=== PATIENT | male | born 1935 | race Caucasian/White ===

== ENCOUNTER 2020-01-09 08:23 | Outpatient (CLI) | payer MEDICARE, SELFPAY ==
--- NOTE | ~2020-01-09 | NM_ITS ---
EXAMINATION: NM kofi stress w perfusion DATE: 01/09/2020 11:29 INDICATION: Dyspnea on exertion. TECHNIQUE: Rest images were obtained following intravenous administration of 9.41 mCi Tc99m tetrofosm in (Myoview). The patient was infused intravenously with Lexiscan (regadenoson). Then, 30.7 mCi Tc99m tetrofosmin (Myoview) was administered intravenously, and stress images were obtained. Data was lester nstructed into short axis and horizontal and vertical long axis SPECT images. Gated SPECT images were also obtained. COMPARISON: Chest 2 views 05/29/2018 FINDINGS: There is no definite reversible or fixed perfusion abnormality to suggest ischemia or infar ction. There is no segmental wall motion abnormality. Left ventricular ejection fraction measures 7 0%. IMPRESSION: 1. No definite ischemia or infarct. 2. Normal left ventricular ejection fraction measuring 70%. Reviewed, dictated and finalized at location A.
--- NOTE | 2020-01-09 08:38 | EST_ITS ---
Patient Info Name: Glen Miles Age: 84 years : 1935 Gender: Male Ht: 70 in Wt: 210 lbs BSA: 2.19 m2 Exam Date: 01/09/2020 10:27 AM Exam Location: [facility] Stress Patient Status: Outpatient Admit Date: 01/09/2020 Staff Ordering Physician: Ga Sweet DO Attending Provider: Ga Sweet DO Exercise Technologist: Champ Siddiqi RDCS, RT Exercise Physician: Ga Sweet DO Exam Type: CA stress kofi w NM Study Info A regadenoson stress test was performed. Summary 1. 1. Negative Lexiscan stress test for ischemic ST changes by ECG criteria. 2. 2. Baseline hypertension. 3. 3. Nuclear scan to follow and will be reported separately. Please correlate with it. 4. 4. Patient informed of the above results. Protocol: Lexiscan Stress ECG Details Stage: REST Duration (min): 1 min : 55 sec HR (bpm): 52 SBP (mmHg): 146 DBP (mmHg): 82 Stage: REST Duration (min): 7 min : 54 sec HR (bpm): 54 SBP (mmHg): 146 DBP (mmHg): 82 Stage: STAGE 1 Duration (min): 1 min : 0 sec HR (bpm): 62 SBP (mmHg): 170 DBP (mmHg): 69 Stage: RECOVERY Duration (min): 1 min : 0 sec HR (bpm): 61 SBP (mmHg): 170 DBP (mmHg): 69 Stage: RECOVERY Duration (min): 2 min : 0 sec HR (bpm): 61 SBP (mmHg): 170 DBP (mmHg): 69 Stage: RECOVERY Duration (min): 3 min : 0 sec HR (bpm): 58 SBP (mmHg): 170 DBP (mmHg): 69 Stage: RECOVERY Duration (min): 3 min : 29 sec HR (bpm): 60 SBP (mmHg): 154 DBP (mmHg): 69 Rest HR: 54 bpm Peak HR: 64 bpm Rest Sys BP: 146 mmHg Peak Sys BP: 170 mmHg Max Pred HR: 135 bpm % Max Pred HR: 47 % Target HR: 115 bpm Max RPP: 10,880 bpm*mmHg Termination Reason: Completed protocol Cardiac Symptoms: Shortness of breath Total Time: 1 min : 0 sec Rest Ramos BP: 82 mmHg Peak Ramos BP: 69 mmHg Total Dose: 0.4 mg Resting ECG Sinus bradycardia with first degree AV block, delayed precordial R/S transition. Stress ECG No ST changes. Arrhythmias None. Report Signatures
== END 2020-01-09 08:24 | disposition home or self-care (01) ==
PROVIDERS: PCP Family Medicine; Visit Provider Internal Medicine Cardiovascular Disease
DX: R06.09 Other forms of dyspnea (principal)
CPT/HCPCS: 78452; 93017; A9502; J2785

== ENCOUNTER 2020-04-02 13:56 | Outpatient (CLI) | payer MEDICARE, SELFPAY ==
--- NOTE | ~2020-04-02 | XR_ITS ---
EXAMINATION: XR chest 2V EXAM DATE: 04/02/2020 15:12 INDICATION: Preoperative. Medial compartment right knee surgery. TECHNIQUE: Frontal and lateral projections of the chest obtained and reviewed. Comparison is made to prior examination from 05/29/2018. FINDINGS: Probable moderate-sized gastroesophageal hiatal hernia. The lungs are clear. There are no pleural effusions. The cardiomediastinal silhouette is within normal limits. There is no pneumotho rax suspected. There are mild bony degenerative changes. IMPRESSION: 1. No acute cardiopulmonary findings. 2. Probable moderate hiatal hernia. Reviewed, dictated and finalized at location A.
[2020-04-02 15:14] LABS: Basophils Percent Auto 0.6 % (0.2-1.2); Eosinophils Absolute Auto 0.1 K/mm3 (0-0.3); Eosinophils Percent Auto 2.1 % (0-4.4); Hematocrit 42.9 % (42.0-52.0); Immature Granulocyte Absolute 0.02 K/mm3 (0.00-0.031); Immature Granulocyte Percent A 0.4 % (0-0.5); Lymphocytes Absolute Auto 1.47 K/mm3 (0.9-3.2); Lymphocytes Percent Auto 28.4 % (18.3-44.2); Mean Corpuscular HGB Conc 32.6 g/dl (32-36); Mean Corpuscular Hemoglobin 30.6 pg (26-34); Mean Corpuscular Volume 93.9 fl (80-100); Mean Platelet Volume 11.7 fl (7.4-10.4); Monocytes Absolute Auto 0.5 K/mm3 (0.1-0.6); Monocytes Percent Auto 10.3 % (2.6-8.5); Neutrophils Percent Auto 58.2 % (45.5-73.1); Platelet Count Result 146 k/mm3 (150-375); Red Blood Count 4.57 M/mm3 (4.6-6.20); Red Cell Distribution Width 14.6 % (11.5-14.5); White Blood Count 5.2 K/mm3 (4.5-10.0)
[2020-04-02 15:26] LABS: Albumin Level 4.6 g/dL (3.5-5.1); Blood Urea Nitrogen 22 mg/dL (9-20); Calcium 9.3 mg/dL (8.4-10.2); Carbon Dioxide 29 mmol/L (22-30); Chloride 105 mmol/L (98-107); Estimated Glomerular Filt Rate 48; Glucose 97 mg/dL (75-110); Sodium 139 mmol/L (137-145)
[2020-04-02 15:29] LABS: Urine Cotinine NEGATIVE
[2020-04-02 16:58] LABS: Hemoglobin A1C 5.9 % (<5.7)
== END 2020-04-02 13:57 | disposition home or self-care (01) ==
PROVIDERS: PCP Internal Medicine; Visit Provider Orthopaedic Surgery
DX: M19.90 Unspecified osteoarthritis, unspecified site (principal); Z01.818 Encounter for other preprocedural examination
CPT/HCPCS: 36415; 71046; 80048; 80307; 82040; 83036; 85025; 87070

== ENCOUNTER 2020-04-14 01:01 | Outpatient (CLI) | payer MEDICARE, SELFPAY ==
[2020-04-14 20:03] LABS: SARS-CoV-2 RNA PCR Negative
== END 2020-04-14 01:02 | disposition home or self-care (01) ==
LOC: ANHCOVIDDT 01:02
PROVIDERS: PCP Internal Medicine; Visit Provider Orthopaedic Surgery
DX: Z01.812 Encounter for preprocedural laboratory examination (principal); Z11.59 Encounter for screening for other viral diseases
CPT/HCPCS: 87635; C9803; U0003

== ENCOUNTER 2020-04-16 02:18 | Day surgery (SDC) | payer MEDICARE, SELFPAY ==
[2020-04-02 14:26] VITALS: BP 154/70; PULSE 58; RESP 20; TEMP 36.8; O2SAT 97; BMI 30.3
--- NOTE | 2020-04-14 14:28 | HP_ITS ---
DATE OF SERVICE: 04/16/2020 ADMIT DIAGNOSIS: Medial compartment arthritis, right knee. HISTORY OF PRESENT ILLNESS: The patient is an 84-year-old male patient Dr. Rowland, who presents today for an [place] partial knee replacement of his right knee versus total knee replacement. He has been having pain in this knee for years. He is very active 84-year-old with minimal medical history. He has tried treating this nonsurgically. He had a cortisone injection at the beginning of this year that had minimal relief. He does have severe medial compartment arthritis in the knee and has reached a point where he feels he would rather proceed with surgery and continue nonsurgical treatment. The pain bothers him on a daily basis and is decreasing his overall activity level because of it. He has been evaluated and Dr. Nova feels he would be a good candidate for an [place] partial knee replacement and presents today for that. PAST MEDICAL HISTORY: He did have a history of atrial fibrillation in the past, but is in normal sinus rhythm at this point. He has hypercholesterolemia. CURRENT MEDICATIONS: He takes Paxil 20 mg daily, pravastatin 80 mg daily, simvastatin 80 mg daily, and tamsulosin 0.4 mg daily. He has had arthroscopic surgery done on his right knee in 2003. He has had surgery on his nose in the past. He has a history of paroxysmal atrial fibrillation. ALLERGIES: NO KNOWN DRUG ALLERGIES. FAMILY HISTORY: Noncontributory. SOCIAL HISTORY: He is nonsmoker. PHYSICAL EXAMINATION: GENERAL: An 84-year-old male, very alert, pleasant, in no distress. VITAL SIGNS: He is 5 feet 8 inches height, 195 pounds. Other vital signs per nursing on the morning of surgery. HEENT: Grossly normal. LUNGS: Clear bilaterally. HEART: Regular rate and rhythm. EXTREMITIES: Right knee range of motion is from 7 to 135. He has mild effusion. He has tenderness along the medial joint line. Normal AP and medial lateral stability. Hip range of motion is full without discomfort. Negative Stinchfield maneuver. Normal quad strength. Sensory motor function is intact right lower extremity. 2+ dorsalis pedis and posterior tibial pulse. Skin is all normal. IMAGING DATA: X-rays demonstrate severe medial compartment arthritis in the knee. He has had an MRI scan, which generally confirms a medial compartment arthritis, but also shows the ACL to be intact and no significant arthritic changes in the lateral compartment or patellofemoral joint. Lateral meniscus appears to be intact. IMPRESSION: Mr. bell has isolated severe medial compartment arthritis that is not improved from nonsurgical treatment. He is fairly miserable on daily basis and would like to proceed with Iberia partial knee replacement. Surgical procedure as well as risks and complications were discussed. All questions were answered and we will proceed. The patient will see Dr. Rowland for presurgical clearance. He is also seeing Dr. Sweet for cardiac evaluation prior to surgery. He has had a stress test as well as an echo. His ejection fraction was 60% to 65%. Stress test was completely normal. No evidence of any ischemia. Showed sinus bradycardia with first-degree AV block. The patient will avoid any aspirin and ibuprofen products 1 week prior to surgery. His nasal swab was negative. Hemoglobin 14.0, platelets 146. His creatinine is elevated at 1.40 with a GFR of 48. We will avoid Toradol in our injection as well as any anti-inflammatories postoperatively given the elevated creatinine. D I MT: Alisia
[2020-04-16] VITALS (14 sets, daily range): BP systolic 103–149; BP diastolic 60–83; PULSE 62–79; RESP 12–20; TEMP 35.7–36.4; O2SAT 92–100
--- NOTE | ~2020-04-16 | XR_ITS ---
EXAMINATION: XR surgery orthopedic DATE: 04/16/2020 14:47 INDICATION: Right partial knee arthroplasty. TECHNIQUE: 2 fluoroscopic spot images of the right knee were obtained during procedure performed by Krista Nova. Radiologist was not present for the imaging or procedure. The amount of fluoroscopy time used during this procedure was 0.3 minutes. COMPARISON: None. FINDINGS: Osteotomy at the medial tibial plateau with placement of a middle bile while tibial tray fo r unicompartmental arthroplasty. Metallic guide pin below the tibial plateau. Expected operative gas is seen within the joint space which demonstrates significant cartilage loss along the medial side of the weightbearing medial femoral condyle. No fracture. IMPRESSION: 1. Expected appearance during right knee medial unicompartmental arthroplasty. Reviewed, dictated and finalized at location A.
--- NOTE | ~2020-04-16 | XR_ITS ---
EXAMINATION: XR knee RT 2V DATE: 04/16/2020 16:02 CDT INDICATION: Partial right knee arthroplasty TECHNIQUE: 2 views right knee FINDINGS: There is a right partial knee arthroplasty in expected position. Subcutaneous gas with flu id and air in the joint are consistent with recent surgery. No evidence of periprosthetic fracture. IMPRESSION: 1. Recent right partial knee arthroplasty. Reviewed, dictated and finalized at location A.
--- NOTE | 2020-04-16 10:15 | WPDANESEPPF ---
Anes - Initial Pre Proc Eval Procedure: Operation Date: 04/16/20 12:00 Proposed Procedures p Right Partial Knee Replacement Versus Possible Right Total Knee Arthroplasty - Piotr Nova MD Date/Time: 04/16/20 10:15 Surgeon: Piotr Nova MD Pre Op Diagnosis: OA medial compartment right knee Patient Data Age: 84 Gender: M Height: 5 ft 11 in Weight: 98.7 kg Last Vital Signs Temp 36.8 C 04/02/20 14:26 Pulse 58 L 04/02/20 14:26 Resp 20 04/02/20 14:26 BP 154/70 H 04/02/20 14:26 Pulse Ox 97 04/02/20 14:26 Allergies Allergy/AdvReac Type Severity Reaction Status Date / Time No Known Allergies Allergy Verified 03/24/20 10:18 Home Medications Medication Instructions Recorded Confirmed Type apixaban 5 mg tablet 5 mg PO BID 09/03/19 04/02/20 History ascorbic acid (vitamin C) 500 mg 500 mg PO DAILY 09/03/19 04/02/20 History chewable tablet cetirizine 10 mg capsule 10 mg PO DAILY cap 09/03/19 04/02/20 History cholecalciferol (vitamin D3) 25 1,000 unit PO WEEKLY cap 09/03/19 04/02/20 History mcg (1,000 unit) capsule coenzyme Q10 100 mg capsule 100 mg PO DAILY 09/03/19 04/02/20 History paroxetine HCl 20 mg tablet 20 mg PO DAILY 09/03/19 04/02/20 History saw palmetto fruit 450 mg capsule 450 mg PO DAILY cap 09/03/19 04/02/20 History tamsulosin 0.4 mg capsule 0.4 mg PO DAILY 09/03/19 04/02/20 History garlic 1,000 mg capsule 1,000 mg PO DAILY 03/04/20 04/02/20 History amiodarone 200 mg PO HS 04/02/20 04/02/20 History cyanocobalamin (vitamin B-12) 1,000 mcg PO DAILY 04/02/20 04/02/20 History pravastatin 80 mg PO HS 04/02/20 04/02/20 History Patient hx anesthesia problems: none Family hx anesthesia problems: none PMFSH Past Medical History Medical History Abnormal heart rhythm Afib Arthritis Hypertension Surgical History Surgical History History of right knee surgery Family History Family History Mother Patient's mother is Father Patient's father is Social History Social History Smoking status: Never smoker Second hand tobacco smoke exposure: No Alcohol intake: never Substance use: never Anes - Eval Final PreProcedure Day of Procedure 04/16/20 10:15 Patient weight: overweight Heart: regular rate and rhythm Lungs: clear to auscultation Airway: Mallampati scale class II Neurological: other (alert) Last oral intake: >/= 8 hours ASA classification: III Emergent: no Anesthetic plan: proceed Anesthesia type and monitoring: general LMA and standard monitoring Informed Consent: The patient's anesthetic plan and its attendant risks and benefits were discussed with the patient/family/POA. Questions were solicited and answers provided to the satisfaction of the patient/family/POA.
[2020-04-16] MEDS: LACTATED RINGERS 1,000 ML 30 ML IV CONT ×2 (10:30→15:55)
[2020-04-16] MEDS: ACETAMINOPHEN 500 MG TABLET 1000 MG PO (10:41)
--- NOTE | 2020-04-16 11:46 | WPDHPUPDATE1 ---
History and Physical Update Update Date/Time: 04/16/20 11:46 History and Physical has been reviewed, including an updated exam of the patient. There are NO changes in the patient's condition. Risks, benefits, and alternatives have been discussed and questions answered. Patient agrees to proceed with procedure.
[2020-04-16] MEDS: TRANEXAMIC ACID 1,000MG/ISO100 1,000 MG/100 ML BAG 200 MG IVPB (11:57)
[2020-04-16] MEDS: ceFAZolin 2 GM/D5W 50 ML 2 GM/50 ML BAG IVPB (12:00)
[2020-04-16] MEDS: GENTAMICIN BONE CEMENT REFOBACIN 1 EACH TOPICAL ×2 (13:03→13:04)
[2020-04-16] MEDS: ceFAZolin SODIUM 1 GM VIAL IV PUSH (15:02)
--- NOTE | 2020-04-16 15:48 | PM.PROC ---
Procedure Note - Detailed Date of procedure: 04/16/20 Pre-op diagnosis: OA medial compartment right knee Post-op diagnosis: same Procedure performed: [place] partial knee replacement medial compartment right knee Description of procedure: Patient was brought to the operating room and a general anesthesia was administered. He received 2 g of Ancef weight based vancomycin 1 g of tranexamic acid preoperatively. The right leg was positioned on the special thigh sabillon for the [place] knee replacement and the supporting the foot the right knee was prepped draped usual fashion. Limb was a 7 injury elevated to 3 mmHg. The 5 in longitudinal incision was made from the medial aspect of the superior pole of the patella down to just medial to the tibial tubercle. Median parapatellar arthrotomy was made in line with the incision. At at the top the arthrotomy a 2 cm split was made in the vastus medialis oblique is at the level of superior pole of patella. Small amount of the infrapatellar fat pad was excised. There was mild chondromalacia in the center of the lateral femoral condyle. ACL looked fine. The had high-grade cartilage loss and some areas of exposed bone in the medial femoral condyle and medial tibial plateau. The trochlea looked very good. There are small inferomedial osteophytes on the patella were debrided and osteophytes from around the femur in the intercondylar notch her operated. The large spoon looked appropriate. We are able to insert the 2 spoon which was a little bit snug and we linked this with the 4 mm G clamp the tibial cutting guide set at 7? posterior slope and tibial resection was made. The wafer sized to a size D which is appropriate with but about 3 mm shorter than the maximum length away for an seemed appropriate. The fluoro was brought in to make sure that the D fit a proper properly on the tibial plateau and that fit line to line posteromedially and anteromedially with no overhang mid medially. A guide edith inserted down the femoral canal and the large drill guide was linked to the intramedullary edith and position in the center of the medial femoral condyle. We had drawn a central line for placement and this fit well medial collateral. Drill holes were made. Posterior chamfer cutting guide was applied and the posterior cut made and the distal femur milled with a 0 spigot. We trialed and in flexion the 3 mm Feeler was tight without valgus stress appropriate with valgus stress and the 4 mm was too tight to insert. Wanting to use a 4 mm bearing ultimately, I reapplied the tibial cutting guide and we used the special 1 mm Britany which allowed us to cut 1 more mm of bone from the tibial plateau which was accomplished carefully. On trialing again this time the 4 mm Feeler was appropriate she of in flexion. There was not the 3 with this. At 20? of flexion the 1 mm Feeler was snug therefore we chose the 3 [address] and the place this and milled with a large male and this time on trialing we had appropriate feel with the 4 mm Feeler the Rodriguez in both in flexion-extension and we snapped in the 4 mm bearing which was noted insertion but had appropriate wiggle both at 100? 20? of flexion. The bearing was tracking appropriately 1 mm from the vertical wall in flexion and drifting to 4 mm from the vertical wall in terminal extension. The impingement guide was placed on the femur and anterior femur milled and the osteotome posteriorly removed a very small osteophytes of the large seemed to be an excellent size. The D tibia was placed on the tibia plateau and spiked in place and the slot for the keel made with the toothbrush saw. We trialed again and side no impingement with the with the bearing and full extension and full flexion. The step drill was used to make multiple drill holes in the distal femur and tibial plateau. Bone quality was satisfactory. It was not sclerotic. Petterchak impaction of the methylmethacrylate was mixed and applied to the D tibia and
[2020-04-16 16:19] LABS: Glucose Point of Care 169 (65-105)
--- NOTE | 2020-04-16 18:00 | ADMGEN ---
This patient, Glen Miles, was admitted to 2 Medical Room 255-. Patient/family oriented to hospital policies and general routines including ID bracelet, bed and alarms, visiting hours, pain management, procedures, bathroom and other care routines, personal items, smoking policy, room service/diet, and visiting hours. Valuables list has been completed. Information on how to activate the Rapid Response Team has been discussed. Patient/Family are encouraged to report perceived risks to care and to ask questions if they do not understand what they are told or what they should do.
[2020-04-16] MEDS: SODIUM CHLORIDE 0.9% IV 1,000 ML 125 ML IV CONT (18:08)
[2020-04-16] MEDS: DOCUSATE SODIUM 100 MG CAPSULE PO (18:09)
[2020-04-16] MEDS: SENNOSIDES 8.6 MG TABLET PO (18:48)
[2020-04-16] MEDS: AMIODARONE HCL 200 MG TABLET PO (20:08)
[2020-04-16] MEDS: PRAVASTATIN SODIUM 20 MG TABLET 80 MG PO (20:09)
[2020-04-17] VITALS (7 sets, daily range): BP systolic 112–152; BP diastolic 46–84; PULSE 57–78; RESP 16–18; TEMP 36.2–36.7; O2SAT 90–96
[2020-04-17] MEDS: ACETAMINOPHEN 500 MG TABLET 1000 MG PO ×3 (00:32→11:29)
[2020-04-17] MEDS: SODIUM CHLORIDE 0.9% IV 1,000 ML 125 ML IV CONT (02:08)
--- NOTE | 2020-04-17 03:24 | PM.IMCN ---
Assessment and Plan Assessment and plan (1) S/P right knee arthroscopy: Code(s): Z98.890 - Other specified postprocedural states Status: Acute Assessment and Plan: Continue Ortho recommendations. (2) Afib: Qualifiers: Atrial fibrillation type: unspecified Qualified Code(s): I48.91 - Unspecified atrial fibrillation Code(s): I48.91 - Unspecified atrial fibrillation Status: Chronic Assessment and Plan: Currently in Sinus rhythm. Continue amiodarone and resume Eliquis when possible. (3) Hypertension: Qualifiers: Hypertension type: unspecified Qualified Code(s): I10 - Essential (primary) hypertension Code(s): I10 - Essential (primary) hypertension Status: Chronic Assessment and Plan: stable. monitor blood pressure. (4) Hyperglycemia: Code(s): R73.9 - Hyperglycemia, unspecified Status: Acute Assessment and Plan: r/o diabetes mellitus. Check HgbA1c. (5) Dyslipidemia: Code(s): E78.5 - Hyperlipidemia, unspecified Status: Chronic Assessment and Plan: Continue pravastatin. Additional Plan Date of service was 04/17/2020 at 3 am. HPI Data of Consult Consult date: 04/17/20 Requesting Physician: Piotr Nova MD Primary Care Provider: Lennox Rowland, Consult Narrative Narrative: Thank you for consulting us to see this 84 year old male with known atrial fibrillation, HTN, hyperlipidemia who is s/p partial right knee arthroplasty secondary to osteoarthritis. Tonight the patient complains of ongoing knee pain but denies any fever, chills, shortness of breath, chills, abdominal pain, nausea, vomiting, diarrhea, or focal neurological symptoms. He has no other complaints at this time. Review of Systems Review of Systems: All systems reviewed & are unremarkable except as noted in HPI and below PMFSH Past Medical History Medical History Abnormal heart rhythm Afib Arthritis Hypertension Surgical History Surgical History History of right knee surgery Family History Family History Mother Patient's mother is Father Patient's father is Social History Social History Smoking status: Never smoker Second hand tobacco smoke exposure: No Alcohol intake: never Substance use: never Substance use type: does not use Gender identity (if verbalized by the patient): Male Spiritual care concerns: No Meds Home Medications and Allergies Home Medications Medication Instructions Recorded Confirmed Type apixaban 5 mg tablet 5 mg PO DAILY 09/03/19 04/16/20 History ascorbic acid (vitamin C) 500 mg 500 mg PO DAILY 09/03/19 04/16/20 History chewable tablet cetirizine 10 mg capsule 10 mg PO DAILY cap 09/03/19 04/16/20 History cholecalciferol (vitamin D3) 25 1,000 unit PO WEEKLY cap 09/03/19 04/16/20 History mcg (1,000 unit) capsule coenzyme Q10 100 mg capsule 100 mg PO DAILY 09/03/19 04/16/20 History paroxetine HCl 20 mg tablet 20 mg PO DAILY 09/03/19 04/16/20 History saw palmetto fruit 450 mg capsule 450 mg PO DAILY cap 09/03/19 04/16/20 History tamsulosin 0.4 mg capsule 0.4 mg PO DAILY 09/03/19 04/16/20 History garlic 1,000 mg capsule 1,000 mg PO DAILY 03/04/20 04/16/20 History amiodarone 200 mg PO HS 04/02/20 04/16/20 History cyanocobalamin (vitamin B-12) 1,000 mcg PO DAILY 04/02/20 04/16/20 History pravastatin 80 mg PO HS 04/02/20 04/16/20 History calcium carbonate [Antacid Ext Str 750 mg PO DAILY 04/16/20 04/16/20 History (calcium carb)] Allergies Allergy/AdvReac Type Severity Reaction Status Date / Time No Known Allergies Allergy Verified 03/24/20 10:18 Vital Signs Vital Signs - 24 hr 04/16/20 10:
[2020-04-17 06:07] LABS: Basophils Percent Auto 0.1 % (0.2-1.2); Hematocrit 38.9 % (42.0-52.0); Hemoglobin 12.8 g/dL (14.0-18.0); Immature Granulocyte Absolute 0.08 K/mm3 (0.00-0.031); Immature Granulocyte Percent A 0.7 % (0-0.5); Immature Platelet Fraction Pct 6.1 % (0.9-11.2); Lymphocytes Absolute Auto 0.47 K/mm3 (0.9-3.2); Mean Corpuscular HGB Conc 32.9 g/dl (32-36); Mean Corpuscular Hemoglobin 30.7 pg (26-34); Mean Corpuscular Volume 93.3 fl (80-100); Mean Platelet Volume 11.9 fl (7.4-10.4); Monocytes Absolute Auto 0.6 K/mm3 (0.1-0.6); Monocytes Percent Auto 5.4 % (2.6-8.5); Neutrophils Absolute Auto 10.5 K/mm3 (1.3-6.7); Neutrophils Percent Auto 89.8 % (45.5-73.1); Platelet Count Result 140 k/mm3 (150-375); Red Blood Count 4.17 M/mm3 (4.6-6.20); Red Cell Distribution Width 14.5 % (11.5-14.5); White Blood Count 11.7 K/mm3 (4.5-10.0)
[2020-04-17 06:21] LABS: Blood Urea Nitrogen 18 mg/dL (9-20); Calcium 8.7 mg/dL (8.4-10.2); Carbon Dioxide 24 mmol/L (22-30); Chloride 106 mmol/L (98-107); Estimated CRCL calculation 43 ml/min; Estimated Glomerular Filt Rate 58; Glucose 137 mg/dL (75-110); Potassium 4.6 mmol/L (3.4-5.0); Sodium 136 mmol/L (137-145)
--- NOTE | 2020-04-17 07:11 | PM.PNORT ---
Progress Note: A&P Additional Plan POD 1 alert,avss labs-pending. Wd-dry NVI, pt was having quite a bit of pain last night and did not get out of bed. PT to work with pt today, plan to send home later today if does well with PT <JAKE Fong - Last Filed: 04/17/20 07:12> Subjective Subjective Date/Time Seen: 04/17/20 07:11 <JAKE Fong - Last Filed: 04/17/20 07:12> Objective Data Vital Signs Vital Signs: Vital Signs - 24 hr 04/16/20 10:42 04/16/20 15:54 04/16/20 16:10 Temperature 35.7 C L 36.1 C L Pulse Rate 62 78 74 Respiratory Rate 16 12 Blood Pressure 136/62 124/60 122/69 Pulse Oximetry 99 98 96 04/16/20 16:25 04/16/20 16:40 04/16/20 16:55 Temperature Pulse Rate 72 74 72 Respiratory Rate 12 16 16 Blood Pressure 141/61 H 103/83 126/69 Pulse Oximetry 97 100 94 04/16/20 17:10 04/16/20 17:25 04/16/20 17:45 Temperature 36.4 C Pulse Rate 79 71 72 Respiratory Rate 18 14 16 Blood Pressure 131/68 130/61 129/65 Pulse Oximetry 92 93 95 04/16/20 18:00 04/16/20 18:30 04/16/20 19:13 Temperature 36.4 C 36.4 C 36.3 C L Pulse Rate 73 70 66 Respiratory Rate 16 16 20 Blood Pressure 122/62 124/63 149/65 H Pulse Oximetry 96 95 96 04/16/20 20:00 04/16/20 20:08 04/17/20 02:04 Temperature Pulse Rate 71 76 63 Respiratory Rate Blood Pressure Pulse Oximetry 04/17/20 04:00 04/17/20 05:38 Temperature 36.3 C L Pulse Rate 63 66 Respiratory Rate 16 Blood Pressure 152/70 H Pulse Oximetry 90 <JAKE Fong - Last Filed: 04/17/20 07:12> Intake/Output Intake/Output: Intake & Output 04/14/20 04/15/20 04/16/20 04/17/20 23:59 23:59 23:59 23:59 Intake Total 1000 1616 Output Total 100 650 Balance 900 966 <JAKE Fong - Last Filed: 04/17/20 07:12> Meds/Results Medications: Active Medications Generic Name Dose Route Start Last Admin Trade Name Freq PRN Reason Stop Dose Admin Acetaminophen 1,000 mg 04/17/20 00:00 04/17/20 05:41 Tylenol Tablet PO 1,000 mg Q6H GERMAN Administration Amiodarone HCl 200 mg 04/16/20 21:00 04/16/20 20:08 Pacerone PO 200 mg HS GERMAN Administration Apixaban 2.5 mg 04/17/20 09:00 Eliquis PO 04/28/20 21:01 Q12HR GERMAN Ascorbic Acid 500 mg 04/17/20 09:00 Vitamin C PO DAILY [facility] Cyanocobalamin 1,000 mcg 04/17/20 09:00 Vitamin B-12 Tab PO QAM GERMAN Docusate Sodium 100 mg 04/16/20 19:00 04/16/20 18:09 Colace Capsule PO 100 mg BID GERMAN Administration Sodium Chloride 1,000 mls @ 125 mls/hr 04/16/20 17:28 04/17/20 04:29 Normal Saline Iv IV CONT 125 mls/hr .Q8H GERMAN Infusion Cefazolin Sodium 1 gm in 50 mls @ 100 mls/hr 04/16/20 20:00 04/17/20 04:38 Ancef 1 Gm/D5w 50 Ml Pm IVPB 04/17/20 12:29 Infused Q8H GERMAN Infusion Loratadine 10 mg 04/17/20 09:00 Claritin PO QAM EGRMAN Naloxone HCl 0.1 mg 04/16/20 17:28 Narcan IV PUSH Q2M PRN Opiate Reversal Oxycodone HCl 2.5 mg 04/16/20 21:00 04/17/20 05:41 Roxicodone Ir Tablet PO 2.5 mg Q4HR GERMAN Administration Oxycodone HCl 5 mg 04/16/20 17:28 04/17/20 04:23 Roxicodone Ir Tablet PO 5 mg Q4H PRN Administration Pain Rated 7-10 Paroxetine HCl 20 mg 04/17/20 09:00 Paxil PO DAILY GERMAN Polyethylene Glycol 17 gm 04/17/20 09:00 Miralax PO QAM GERMAN Pravastatin Sodium 80 mg 04/16/20 21:00 04/16/20 20:09 Pravastatin Sodium PO 80 mg HS GERMAN Administration Senna 8.6 mg 04/16/20 19:00 04/16/20 18:48 Senokot Tablet PO 8.6 mg BID GERMAN Administration Tamsulosin HCl 0.4 mg 04/17/20 09:00 Flomax PO DAILY [facility] Vitamin D 1,000 unit 04/19/20 09:00 Vitamin D PO Sa@0900 [facility] <JAKE Fong - Last Filed: 04/17/20 07:12> Radiology Results: ITS Impressions Intraoperative X-Ray 04/16/20 14:49 IMPRESSION: 1. Expected appearance during right knee medial unicomp
[2020-04-17 07:14] LABS: Hemoglobin A1C 5.9 % (<5.7)
--- NOTE | 2020-04-17 07:30 | WPDANESPN ---
Anes - Prog Note Post-Op Date/Time: 04/17/20 07:30 Cardiovascular status: normal Respiratory status: normal Airway patency: baseline Mental status: baseline Post-Op hydration status: normal Vital Signs: Last Vital Signs Temp 36.3 C L 04/17/20 05:38 Pulse 66 04/17/20 05:38 Resp 16 04/17/20 05:38 BP 152/70 H 04/17/20 05:38 Pulse Ox 90 04/17/20 05:38 I/O: Intake & Output 04/16/20 04/16/20 04/17/20 15:59 23:59 07:59 Intake Total 449 381 7255 Output Total 100 650 Balance 650 250 966 Laboratory Tests 04/17/20 05:51 04/17/20 05:51 04/16/20 04/16/20 04/17/20 10:33 16:16 05:51 WBC 11.7 H RBC 4.17 L Hgb 12.8 L Hct 38.9 L MCV 93.3 MCH 30.7 MCHC 32.9 RDW 14.5 Plt Count 140 L MPV 11.9 H Immature Gran % (Auto) 0.7 H Neut % (Auto) 89.8 H Lymph % (Auto) 4.0 L Stevens % (Auto) 5.4 Eos % (Auto) 0.0 Baso % (Auto) 0.1 L Lymph # (Auto) 0.47 L Stevens # (Auto) 0.6 Eos # (Auto) 0.0 Baso # (Auto) 0.0 Abs Immat Gran (auto) 0.08 H Absolute Neuts (auto) 10.5 H Absolute Nucleated RBC 0.0 Nucleated RBC % 0.0 % Immature Plt Fraction 6.1 Sodium Potassium Chloride Carbon Dioxide BUN Creatinine Estim Creat Clear Calc Estimated GFR Glucose POC Capillary Glucose 169 H Hemoglobin A1c Calcium Blood Type A Positive Antibody Screen Negative 04/17/20 04/17/20 05:51 05:51 WBC RBC Hgb Hct MCV MCH MCHC RDW Plt Count MPV Immature Gran % (Auto) Neut % (Auto) Lymph % (Auto) Stevens % (Auto) Eos % (Auto) Baso % (Auto) Lymph # (Auto) Stevens # (Auto) Eos # (Auto) Baso # (Auto) Abs Immat Gran (auto) Absolute Neuts (auto) Absolute Nucleated RBC Nucleated RBC % % Immature Plt Fraction Sodium 136 L Potassium 4.6 Chloride 106 Carbon Dioxide 24 BUN 18 Creatinine 1.20 Estim Creat Clear Calc 43 Estimated GFR 58 L Glucose 137 H POC Capillary Glucose Hemoglobin A1c 5.9 H Calcium 8.7 Blood Type Antibody Screen Post-procedural complaints: none Patient Feedback: Patient satisfied with anesthetic care.
--- NOTE | 2020-04-17 07:35 | PM.PNORT ---
Progress Note: A&P Additional Plan As per Mahamed Tong. Cr 1.2. Will give am dose of vanco. Continue avoidance of NSAIDs. Likely home today if does well. Plan Eliquis 2.5 mg bid for 10 days then increase to 5 mg BID for Afib prrotection. Subjective Subjective Date/Time Seen: 04/17/20 07:35 Objective Data Vital Signs Vital Signs: Vital Signs - 24 hr 04/16/20 10:42 04/16/20 15:54 04/16/20 16:10 Temperature 35.7 C L 36.1 C L Pulse Rate 62 78 74 Respiratory Rate 16 12 Blood Pressure 136/62 124/60 122/69 Pulse Oximetry 99 98 96 04/16/20 16:25 04/16/20 16:40 04/16/20 16:55 Temperature Pulse Rate 72 74 72 Respiratory Rate 12 16 16 Blood Pressure 141/61 H 103/83 126/69 Pulse Oximetry 97 100 94 04/16/20 17:10 04/16/20 17:25 04/16/20 17:45 Temperature 36.4 C Pulse Rate 79 71 72 Respiratory Rate 18 14 16 Blood Pressure 131/68 130/61 129/65 Pulse Oximetry 92 93 95 04/16/20 18:00 04/16/20 18:30 04/16/20 19:13 Temperature 36.4 C 36.4 C 36.3 C L Pulse Rate 73 70 66 Respiratory Rate 16 16 20 Blood Pressure 122/62 124/63 149/65 H Pulse Oximetry 96 95 96 04/16/20 20:00 04/16/20 20:08 04/17/20 02:04 Temperature Pulse Rate 71 76 63 Respiratory Rate Blood Pressure Pulse Oximetry 04/17/20 04:00 04/17/20 05:38 Temperature 36.3 C L Pulse Rate 63 66 Respiratory Rate 16 Blood Pressure 152/70 H Pulse Oximetry 90 Intake/Output Intake/Output: Intake & Output 04/14/20 04/15/20 04/16/20 04/17/20 23:59 23:59 23:59 23:59 Intake Total 1000 1616 Output Total 100 650 Balance 900 966 Meds/Results Medications: Active Medications Generic Name Dose Route Start Last Admin Trade Name Freq PRN Reason Stop Dose Admin Acetaminophen 1,000 mg 04/17/20 00:00 07/09/20 05:41 Tylenol Tablet PO 1,000 mg Q6H GERMAN Administration Amiodarone HCl 200 mg 04/16/20 21:00 04/16/20 20:08 Pacerone PO 200 mg HS GERMAN Administration Apixaban 2.5 mg 04/17/20 09:00 Eliquis PO 04/28/20 21:01 Q12HR GERMAN Ascorbic Acid 500 mg 04/17/20 09:00 Vitamin C PO DAILY [facility] Cyanocobalamin 1,000 mcg 04/17/20 09:00 Vitamin B-12 Tab PO QAM GERMAN Docusate Sodium 100 mg 04/16/20 19:00 04/16/20 18:09 Colace Capsule PO 100 mg BID GERMAN Administration Sodium Chloride 1,000 mls @ 125 mls/hr 04/16/20 17:28 04/17/20 04:29 Normal Saline Iv IV CONT 125 mls/hr .Q8H GERMAN Infusion Cefazolin Sodium 1 gm in 50 mls @ 100 mls/hr 04/16/20 20:00 04/17/20 04:38 Ancef 1 Gm/D5w 50 Ml Pm IVPB 04/17/20 12:29 Infused Q8H GERMAN Infusion Vancomycin HCl 1,000 mg in 250 mls @ 250 mls/hr 04/17/20 07:33 Vancomycin 1,000 Mg/D5w 250 Ml IVPB 04/17/20 08:32 ONCE ONE Loratadine 10 mg 04/17/20 09:00 Claritin PO QAM GERMAN Naloxone HCl 0.1 mg 04/16/20 17:28 Narcan IV PUSH Q2M PRN Opiate Reversal Oxycodone HCl 2.5 mg 04/16/20 21:00 04/17/20 05:41 Roxicodone Ir Tablet PO 2.5 mg Q4HR GERMAN Administration Oxycodone HCl 5 mg 04/16/20 17:28 04/17/20 04:23 Roxicodone Ir Tablet PO 5 mg Q4H PRN Administration Pain Rated 7-10 Paroxetine HCl 20 mg 04/17/20 09:00 Paxil PO DAILY [facility] Polyethylene Glycol 17 gm 04/17/20 09:00 Miralax PO QAM GERMAN Pravastatin Sodium 80 mg 04/16/20 21:00 04/16/20 20:09 Pravastatin Sodium PO 80 mg HS GERMAN Administration Senna 8.6 mg 04/16/20 19:00 04/16/20 18:48 Senokot Tablet PO 8.6 mg BID [facility] Administration Tamsulosin HCl 0.4 mg 04/17/20 09:00 Flomax PO DAILY [facility] Vitamin D 1,000 unit 04/19/20 09:00 Vitamin D PO Sa@0900 [facility] Radiology Results: ITS Impressions Intraoperative X-Ray 04/16/20 14:49 IMPRESSION: 1. Expected appearance during right knee medial unicompartmental arthroplasty. Knee X-Ray 04/16/20 16:02 IMPRESSION: 1. Recent right partial knee arthroplasty. Labs Labs: La
[2020-04-17] MEDS: CYANOCOBALAMIN 1,000 MCG TABLET 1000 MCG PO (08:28)
[2020-04-17] MEDS: LORATADINE 10 MG TABLET PO (08:28)
[2020-04-17] MEDS: DOCUSATE SODIUM 100 MG CAPSULE PO (08:28)
[2020-04-17] MEDS: APIXABAN 2.5 MG TABLET PO (08:28)
[2020-04-17] MEDS: polyethylene glycoL 3350 17 GM POWD.PACK PO (08:28)
[2020-04-17] MEDS: PAROXETINE 20 MG TABLET PO (08:28)
[2020-04-17] MEDS: ASCORBIC ACID 500 MG TABLET PO (08:28)
[2020-04-17] MEDS: SENNOSIDES 8.6 MG TABLET PO (08:29)
[2020-04-17] MEDS: TAMSULOSIN HCL 0.4 MG CAPSULE PO (08:29)
--- NOTE | 2020-04-17 09:09 | DS_ITS ---
DATE OF DISCHARGE: 04/17/2020 DIAGNOSIS: Degenerative joint disease, right knee. The patient is an 84-year-old male, who underwent Bertrand partial knee replacement on his right knee by Dr. Nvoa, on April 16 underwent the procedure without any complications. Postop, he has been afebrile. Vital signs were stable. Neurovascularly intact. His wound is dry. He has a Mepilex dressing over it. He is weightbearing as tolerated. He is on Eliquis 2.5 mg for DVT prophylaxis for the first 2 weeks and then he will be resuming his normal Eliquis 5 mg dosing for his chronic atrial fibrillation after that. The patient is having quite a bit of pain postoperatively on the evening of surgery. He was not able to get up out of bed. We will have therapy work with the patient on postop day #1. He is doing well and is comfortable. We will send him home later this day once IV antibiotics are done and he is doing well with therapies. Hemoglobin on postop day #1 is 12.8, platelets are 140. His Chem panel, creatinine was still elevated at 1.2 and GFR was 58. He did not receive postop vancomycin due to his elevated creatinine. We are also not using Celebrex due to the same reason. Otherwise, the patient has been comfortable. He is alert. His outpatient physical therapy is starting next Tuesday. If the patient has any questions or concerns, he will call the office or see him at his appointed date. Krista I MT: Alisia
--- NOTE | 2020-04-17 09:46 | PM.IMPN ---
Progress Note: A&P Assessment and Plan (1) Status post right partial knee replacement: Code(s): Z96.651 - Presence of right artificial knee joint Status: Acute Assessment and Plan: -----pain is relatively well controlled this morning but earlier today it was not. He should continue with physical therapy and see how he does. Could go home today if pain is controlled and he does well with therapy. He should be placed back on his regular-dose (2.5 mg of Eliquis) anticoagulation went ortho deems it safe. (2) Afib: Qualifiers: Atrial fibrillation type: unspecified Qualified Code(s): I48.91 - Unspecified atrial fibrillation Code(s): I48.91 - Unspecified atrial fibrillation Status: Chronic Assessment and Plan: ------Currently in Sinus rhythm. Continue amiodarone and resume Eliquis when possible. (3) Hypertension: Qualifiers: Hypertension type: unspecified Qualified Code(s): I10 - Essential (primary) hypertension Code(s): I10 - Essential (primary) hypertension Status: Chronic Assessment and Plan: -----last blood pressure slightly elevated 152/70 which is likely elevated more due to pain. That he is on any hypertensive medications. Chart review shows relatively good control. Follow-up with primary care physician as regularly scheduled (4) Hyperglycemia: Code(s): R73.9 - Hyperglycemia, unspecified Status: Acute Assessment and Plan: -----A1c 5.9. Monitor outpt. (5) Dyslipidemia: Code(s): E78.5 - Hyperlipidemia, unspecified Status: Chronic Assessment and Plan: -----Continue pravastatin. Time Spent With Patient Time with patient: 25 - 35 minutes Subjective Date/time seen: 04/17/20 09:46 Interval history: Pt is a 84-year-old male here for elective right knee surgery. Patient was seen today and states his pain is a 5/10 but is much better than this morning. He has not worked with physical therapy yet. He states he is eating and drinking well with no nausea or vomiting. He has not had any chest pain, shortness of breath, fevers, chills, or abdominal pain. He lives at home with his and does not have any stairs into his house or in his house. Review of Systems Review of Systems: All systems reviewed & are unremarkable except as noted in HPI and below Exam Narrative: Exam Narrative: General: Well developed well nourished patient resting comfortably in bed in NAD HEENT: normocephalic Neck: supple Neuro: Alert and oriented x4 CV:RRR Resp:CTA Abd: Soft, non distended. No pain to palpation. Positive bowel sounds Extremities: Right knee with bandage intact without excessive erythema, swelling, or bruising. Pulses and sensation intact. Left leg within normal limits. Objective Data Vital Signs Vital Signs: Vital Signs - 24 hr 04/16/20 10:42 04/16/20 15:54 04/16/20 16:10 Temperature 96.3 F L 97.0 F L Pulse Rate 62 78 74 Respiratory Rate 16 12 Blood Pressure 136/62 124/60 122/69 Pulse Oximetry 99 98 96 04/16/20 16:25 04/16/20 16:40 04/16/20 16:55 Temperature Pulse Rate 72 74 72 Respiratory Rate 12 16 16 Blood Pressure 141/61 H 103/83 126/69 Pulse Oximetry 97 100 94 04/16/20 17:10 04/16/20 17:25 04/16/20 17:45 Temperature 97.6 F Pulse Rate 79 71 72 Respiratory Rate 18 14 16 Blood Pressure 131/68 130/61 129/65 Pulse Oximetry 92 93 95 04/16/20 18:00 04/16/20 18:30 04/16/20 19:13 Temperature 97.6 F 97.6 F 97.3 F L Pulse Rate 73 70 66 Respiratory Rate 16 16 20 Blood Pressure 122/62 124/63 149/65 H Pulse Oximetry 96 95 96 04/16/20 20:00 04/16/20 20:08 04/17/20 02:04 Temperature Pulse Rate 71 76 63 Respiratory Rate Blood Pressure Pulse Oximetry 04/17/20 04:00 04/17/20 05:38 Temperature 97.4 F L Pulse Rate 63 66 Respiratory Rate 16 Blood Pressure 152/70 H Pulse Oximetry 90 Intake/Output Intake/Output:
--- NOTE | 2020-04-17 15:10 | PC.NURSE ---
Sent Mepilex AG dressing home with patient and instructed him to change dressing in 1 week. Sent gel pads x 4 home with patient.
== END 2020-04-17 15:10 | disposition home or self-care (01) ==
LOC: ANHSURGERY 09:51 → ANH2MED 17:35
PROVIDERS: Family Medicine; PCP Internal Medicine; Visit Provider Orthopaedic Surgery
PROC: (CPT 27446; principal; 2020-04-16 12:00)
DX: M17.11 Unilateral primary osteoarthritis, right knee (principal); I10 Essential (primary) hypertension; I48.91 Unspecified atrial fibrillation; R73.9 Hyperglycemia, unspecified; E78.5 Hyperlipidemia, unspecified; Z79.01 Long term (current) use of anticoagulants
CPT/HCPCS: 27446; 36415; 71046; 73560; 80048; 80307; 82040; 83036; 85025; 85055; 86850; 86900; 86901; 87070; 87635; 97110; 97116; 97161; 97165; A9270; C1713; C1776; C9803; J0131; J0171; J0330; J0690; J1100; J2250; J2270; J2405; J2704; J2795; J3010; J3370; J7030; J7120; U0003

== ENCOUNTER 2020-06-26 07:45 | Outpatient (CLI) | payer MEDICARE, SELFPAY ==
[2020-06-26 09:12] LABS: Cholesterol 208 mg/dL (0-200); HDL Direct 54 mg/dL; Triglycerides 355 mg/dL (<150)
[2020-06-26 09:23] LABS: LDL Cholesterol Direct 37 mg/dL
== END 2020-06-26 07:46 | disposition home or self-care (01) ==
LOC: ANHLAB 07:47
PROVIDERS: PCP Internal Medicine; Visit Provider Internal Medicine Cardiovascular Disease
DX: E78.5 Hyperlipidemia, unspecified (principal)
CPT/HCPCS: 36415; 80061

== ENCOUNTER 2020-12-24 11:26 | Outpatient (CLI) | payer MEDICARE, SELFPAY ==
[2020-12-24 12:02] LABS: Alanine Aminotransferase 14 U/L (4-50); Albumin Level 3.9 g/dL (3.5-5.1); Alkaline Phosphatase 122 U/L (38-126); Anion Gap 5 mmol/L (8-16); Aspartate Amino Transferase 27 U/L (17-59); Bilirubin,Total 0.4 mg/dL (0.2-1.3); Blood Urea Nitrogen 19 mg/dL (9-20); Calcium 9.1 mg/dL (8.4-10.2); Carbon Dioxide 29 mmol/L (22-30); Chloride 108 mmol/L (98-107); Cholesterol 147 mg/dL (0-200); Estimated Glomerular Filt Rate 44; Glucose 104 mg/dL (75-110); HDL Direct 45 mg/dL; Potassium 4.5 mmol/L (3.4-5.0); Sodium 142 mmol/L (137-145); Triglycerides 189 mg/dL (<150)
[2020-12-24 12:14] LABS: LDL Cholesterol Direct < 30 mg/dL
== END 2020-12-24 11:27 | disposition home or self-care (01) ==
PROVIDERS: PCP Internal Medicine; Visit Provider Internal Medicine Cardiovascular Disease
DX: E78.5 Hyperlipidemia, unspecified (principal)
CPT/HCPCS: 36415; 80053; 80061

== ENCOUNTER 2021-01-08 09:01 | Outpatient (CLI) | payer MEDICARE, SELFPAY ==
--- NOTE | ~2021-01-08 | US_ITS ---
US abdomen complete EXAMINATION: US Abdomen Complete INDICATION: Abdominal pain PROCEDURE: Realtime High Resolution abdomen ultrasound. COMPARISON: No prior studies for comparison FINDINGS: There are areas of comet tail artifact originating from the gallbladder wall. No definite g allstones or gallbladder wall thickening. No pericholecystic fluid. Common bile duct measures 5 mm. Liver echotexture is slightly increased, consistent with fatty infiltration.. Pancreas within normal limits. Pancreatic tail is obscured by bowel gas. Spleen is unremarkeable. Renal echotexture is wi thin normal limits bilaterally without hydronephrosis, contour deforming mass or renal stone. Right k idney measures 10.8 cm. Left kidney measures 10 cm. Visualized aspects of the aorta and IVC are within normal limits. Portal vein is patent. No sonograph ic Siddiqi's sign indicated by the technologist. IMPRESSION: 1: Comet tail artifact originating from the gallbladder wall, consistent with adenomyomatosis. 2: Fatty infiltration of the liver. Reviewed, dictated and finalized at location B. IMPRESSION: 1: Comet tail artifact originating from the gallbladder wall, consistent with a denomyomatosis. 2: Fatty infiltration of the liver.
== END 2021-01-08 09:02 | disposition home or self-care (01) ==
PROVIDERS: PCP Internal Medicine; Visit Provider Internal Medicine
DX: R10.9 Unspecified abdominal pain (principal); K76.0 Fatty (change of) liver, not elsewhere classified
CPT/HCPCS: 76700

== ENCOUNTER 2021-02-19 10:19 | Outpatient (CLI) | payer MEDICARE, SELFPAY ==
[2021-02-19 11:26] LABS: Alanine Aminotransferase 16 U/L (4-50); Albumin Level 4.2 g/dL (3.5-5.1); Alkaline Phosphatase 108 U/L (38-126); Amylase 69 U/L (30-110); Aspartate Amino Transferase 33 U/L (17-59); Bilirubin,Total 0.6 mg/dL (0.2-1.3); Lipase 50 U/L (23-300)
== END 2021-02-19 10:20 | disposition home or self-care (01) ==
LOC: ANHSURGERY 10:25
PROVIDERS: PCP Internal Medicine; Visit Provider Surgery
DX: K82.4 Cholesterolosis of gallbladder (principal); Z01.818 Encounter for other preprocedural examination
CPT/HCPCS: 36415; 80076; 82150; 83690; 86850; 86900; 86901

== ENCOUNTER → 2021-02-21 01:49 | Outpatient (CLI) | payer MEDICARE, SELFPAY ==
[2021-02-21 23:32] LABS: SARS-CoV-2 RNA PCR Negative
== END ==
PROVIDERS: PCP Internal Medicine; Visit Provider Surgery
DX: Z01.812 Encounter for preprocedural laboratory examination (principal); Z20.822 Contact with and (suspected) exposure to COVID-19
CPT/HCPCS: C9803; U0003; U0005

== ENCOUNTER 2021-02-24 02:33 | Day surgery (SDC) | payer MEDICARE, SELFPAY ==
[2021-02-13 08:55] VITALS: BMI 28.8
--- NOTE | 2021-02-23 10:22 | WPDANESEPPF ---
Anes - Initial Pre Proc Eval Procedure: Operation Date: 02/24/21 11:00 Proposed Procedures p Laparoscopic Cholecystectomy - Belgica Bo MD Date/Time: 02/23/21 10:22 Surgeon: Belgica Bo MD Pre Op Diagnosis: gallbladder polyp Patient Data Age: 85 Gender: M Height: 1.8 m Weight: 93.95 kg Allergies Allergy/AdvReac Type Severity Reaction Status Date / Time No Known Allergies Allergy Verified 02/24/21 09:09 Home Medications Medication Instructions Recorded Confirmed Type ascorbic acid (vitamin C) 500 mg 500 mg PO DAILY 09/03/19 02/24/21 History chewable tablet cholecalciferol (vitamin D3) 25 2,000 unit PO DAILY cap 09/03/19 02/24/21 History mcg (1,000 unit) capsule coenzyme Q10 100 mg capsule 300 mg PO DAILY 09/03/19 02/24/21 History paroxetine HCl 20 mg tablet 20 mg PO HS 09/03/19 02/24/21 History saw palmetto 450 mg capsule 450 mg PO DAILY cap 09/03/19 02/24/21 History tamsulosin 0.4 mg capsule 0.4 mg PO HS 09/03/19 02/24/21 History garlic 1,000 mg capsule 1,000 mg PO DAILY 03/04/20 02/24/21 History cyanocobalamin (vitamin B-12) 1,000 mcg PO DAILY 04/02/20 02/24/21 History calcium carbonate [Antacid Ext Str 750 mg PO DAILY 04/16/20 02/24/21 History (calcium carb)] pravastatin 80 mg tablet See Rx Instructions .ROUTE 10/13/20 02/24/21 Rx .COMPLEX #90 tablet omega-3 fatty acids 1,000 mg 1,000 mg PO BID 12/23/20 02/24/21 History capsule amiodarone 200 mg PO HS 02/13/21 02/24/21 History apixaban [Eliquis] 5 mg PO Q12HR 02/13/21 02/24/21 History cetirizine [Zyrtec] 10 mg PO DAILY 02/13/21 02/24/21 History sennosides-docusate sodium 2 tab-cap PO PRN PRN 02/13/21 02/24/21 History Other Studies: Echo/MUGA:: Echo (EF 60-65%, mod LVH, trace TR.) - 05/23/2019 Electrophysiology:: 09/09/20 EKG: Sinus or ectopic atrial rhythm, BRWP, borderline ST-T wave in diffuse leads. 06/24/20 EKG: Sinus bradycardiat 54 bpm, first degree AV block, LAFB, consider inferior infarct, baseline artifact- I, II, III, AVR, AVL, AVF. 09/05/19 30 day event monitor: Sinus rhythm with 7 episodes of atrial fibrillation; HR range 46-120 bpm; average 59 bpm; atrial fib fastest at 94 bpm and longest lasting 4 minutes; occ PAC's and PVC's. EKG (Sinus bradycardia at 55 bpm, low voltage in limb leads, borderline ST-T wave in lateral leads.) - 05/08/2019 Stress Tests:: 09/09/20 CT head/neck: 0% ICA stenosis bilaterally. 01/09/20 Lexiscan myoview: Normal. Patient hx anesthesia problems: none Family hx anesthesia problems: none [facility] Past Medical History Medical History (Updated 02/23/21 @ 10:24 by Sandip Christine MD) Abnormal heart rhythm Afib Anxiety Arthritis BPH without obstruction/lower urinary tract symptoms CKD (chronic kidney disease) stage 3, GFR 30-59 ml/min Depression Dyslipidemia Hypertension Overweight (BMI 25.0-29.9) Surgical History Surgical History History of right knee surgery Family History Family History Mother Patient's mother is Hypertension Father Patient's father is Hypertension Social History Social History Smoking status: Never smoker Second hand tobacco smoke exposure: No Alcohol intake: never Substance use: never Substance use type: does not use Living arrangements: with family Gender identity (if verbalized by the patient): Male Spiritual care concerns: No Anes - Eval Final PreProcedure Day of Procedure 02/23/21 10:22 Patient weight: overweight Heart: regular rate and rhythm Lungs: clear to auscultation and normal air movement Airway: Mallampati scale class II Neurological: alert and oriented Last oral intake: >/= 8 hours ASA classification: III Emergent: no Anesthetic plan: proceed Anesthesia type and monitoring: general ETT Informed Consent: The
[2021-02-24] VITALS (11 sets, daily range): BP systolic 138–201; BP diastolic 61–104; PULSE 54–70; RESP 12–20; TEMP 36.4; O2SAT 92–100
[2021-02-24] MEDS: LACTATED RINGERS 1,000 ML 30 ML IV CONT ×2 (09:41→12:10)
[2021-02-24] MEDS: KETOROLAC 15 MG/ML VIAL (*BKC) IV PUSH (09:41)
[2021-02-24] MEDS: ACETAMINOPHEN 500 MG TABLET 1000 MG PO (09:42)
--- NOTE | 2021-02-24 09:47 | WPDHPUPDATE1 ---
History and Physical Update Update Date/Time: 02/24/21 09:47 History and Physical has been reviewed, including an updated exam of the patient. There are NO changes in the patient's condition. Risks, benefits, and alternatives have been discussed and questions answered. Patient agrees to proceed with procedure.
[2021-02-24] MEDS: MIDAZOLAM HCL (*CRX) 2 MG/2 ML VIAL 1 MG IV PUSH (09:52)
[2021-02-24] MEDS: ceFAZolin 2 GM/D5W 50 ML 2 GM/50 ML BAG IVPB (11:18)
[2021-02-24] MEDS: BUPIVACAINE/EPINEPHRINE 0.5% 30 ML VIAL INFILTRATE (11:21)
--- NOTE | 2021-02-24 11:57 | P.OP_ITS ---
Procedure Note - Detailed Date of procedure: 02/24/21 Pre-op diagnosis: gallbladder polyp acute cholecystitis Post-op diagnosis: same Procedure performed: laparoscopic cholecystectomy Description of procedure: The patient was taken to the operating room placed in the supine position. After adequate induction of general anesthesia, the patient was prepped and draped in normal sterile fashion. A time-out was then p erformed to verify the patient's identity as well as the procedure being performed. I then made a 5 mm incision in the infraumbilical region. Through this, a Veress needle was placed into the peritoneal cavity and CO2 gas was then insufflated. After adequate pneumoperitoneum was achieved, the Veress needle was removed and a 5 mm optiview trocar was placed through this incision under direct visualization. I then placed the laparoscope through this trocar site and under direct visualization placed a further 12 mm subxiphoid port as well as 2 additional 5 mm ports in the right upper abdomen. An inflammatory mass was noted in the RUQ. The omentum was plastered to this mass. Upon dissecting the omentum off the mass, it was noted the area was very friable. The gallbladder was then identified and was noted to be friable and distended. Upon placing a grasper at the dome of the gallbladder and using gentle traction, a cholecystostomy was made and dark bile was drained. A 2nd retractor was then placed at the infundibulum and retracted laterally, this allowed visualization of the triangle of Calot. I then was able to visualize the cystic duct in its entirety from its proximal insertion into the gallbladder, to its distal junction with the common hepatic/common bile duct junction. At this point, I carefully skeletonized the proximal cystic duct with the [place] dissector. I then clipped and transected the proximal cystic duct. Next I visualized the cystic artery. Again the artery was skeletonized, clipped, and transected. I then used the Bovie cautery to take down the peritoneal attachments of the gallbladder off the liver bed. This was difficult given the friablilty of the gallbladder. Once the gallbladder specimen was completely detached, an endo- pouch was placed through the 12 mm port site. I then placed the gallbladder specimen into the Endo pouch and removed the endo-pouch from the 12 mm port site. The specimen will now be sent to pathology for further review. I then copiously irrigated the right upper quadrant. Hemostasis was noted in the liver bed, the clips were noted to be in good position on both the cystic duct stump and the cystic artery stump. No other pathology was noted in the right upper quadrant. I then moved the laparoscope to the subxiphoid port. No iatrogenic injury or other pathology was noted in the lower abdomen. I then closed the 12 mm trocar site under direct visualization using the Mik cone and 0 Vicryl suture. At this point, the abdomen was desufflated and all ports removed. All port sites were then closed with 4.O Monocryl subcuticular sutures. Dermabond was placed on each incision. The patient tolerated the procedure well, was extubated in the operating room postoperative and will be transferred to the recovery room in stable condition. Implants: none Anesthesia: GETA Surgeon: Belgica Bo MD Estimated blood loss (mL): 10 Drains: No Packing: No Pathology: yes Complications: No immediate complications Condition: stable Disposition: PACU Findings: acute cholecystitis
[2021-02-24] MEDS: fentaNYL CITRATE INJ (*CRX) 100 MCG/2 ML VIAL 25 MCG IV PUSH ×4 (12:12→12:21)
[2021-02-24] MEDS: hydrALAZINE HCL 20 MG/ML VIAL 10 MG IV PUSH (13:00)
[2021-02-24] MEDS: HYDROmorphone HCL INJ (*CRX) 1 MG/ML SYR 0.25 MG IV PUSH ×4 (13:05→13:31)
--- NOTE | 2021-02-24 13:34 | SUR.PHASEI ---
Dr. Nanci simpson with BP 170s/70s.
--- NOTE | 2021-02-24 14:06 | SUR.PHASEII ---
1406- Call to Dr. Bo to clarify when patient can resume home Eliquis 5MG PO Q12HR. Per Dr. Bo patient can resume Eliquis tonight 02/24/2021.
[2021-02-24] MEDS: oxyCODONE HCL (*CRX) 5 MG TAB IR PO (14:15)
== END 2021-02-24 14:31 | disposition home or self-care (01) ==
PROVIDERS: PCP Internal Medicine; Visit Provider Surgery
PROC: 0FT44ZZ Resection of Gallbladder, Percutaneous Endoscopic Approach (ICD-10-PCS; CPT 47562; principal; 2021-02-24 11:00)
DX: K80.10 Calculus of gallbladder with chronic cholecystitis without obstruction (principal); I48.91 Unspecified atrial fibrillation; I12.9 Hypertensive chronic kidney disease with stage 1 through stage 4 chronic kidney disease, or unspecified chronic kidney disease; N18.30 Chronic kidney disease, stage 3 unspecified; N40.0 Benign prostatic hyperplasia without lower urinary tract symptoms; E78.5 Hyperlipidemia, unspecified; F41.8 Other specified anxiety disorders; M19.90 Unspecified osteoarthritis, unspecified site; Z79.01 Long term (current) use of anticoagulants
CPT/HCPCS: 47562; 36415; 80076; 82150; 83690; 86850; 86900; 86901; 88304; A9270; C9803; J0360; J0690; J1170; J1885; J2250; J2405; J3010; J7030; J7120; U0003; U0005

== ENCOUNTER 2021-02-25 08:30 | Observation (INO) | payer MEDICARE, SELFPAY ==
[2021-02-25] VITALS (31 sets, daily range): BP systolic 133–174; BP diastolic 57–83; PULSE 61–70; RESP 16–28; TEMP 36.6–37.2; O2SAT 87–97; BMI 28.5
--- NOTE | ~2021-02-25 | XR_ITS ---
XR chest 1V portable DATE: 02/25/2021 10:20 INDICATION: Hypoxemia TECHNIQUE: Portable AP chest on 02/25/2021 at 1022 hours COMPARISON: 09/09/2020 portable AP chest FINDINGS: Prominent bibasilar infiltrate and/atelectasis since 09/09/2020. Heart size appears borderline. Mild aortic tortuosity. No pleural effusion or pulmonary vascular congestion or pneumothorax is evident. Surgical clips, right upper quadrant, consistent with cholecystectomy. Diffuse osteopenia. Degenerative spurring and scoliosis of the thoracic spine. IMPRESSION: Prominent bibasilar infiltrate and/atelectasis Reviewed, dictated and finalized at location B.
[2021-02-25 09:03] LABS: Add Urine Microscopic? YES; Appearance Urine Cloudy (Clear); Bilirubin Urine Negative (Negative); Blood Urine Negative (Negative); Budding Yeast Urine Present /hpf; Color Urine Yellow (Yellow); Glucose Urine UA Negative (Negative); Ketones Urine Negative (Negative); Leukocyte Esterase Ur Negative LEU/UL (Negative); Mucus Urine Rare /lpf; Nitrate Urine Negative (Negative); Protein Urine 1+ mg/dL (Negative); Specific Grav Ur 1.029 (1.001-1.035)
[2021-02-25 09:46] LABS: Basophils Percent Auto 0.2 % (0.2-1.2); Eosinophils Percent Auto 0.1 % (0-4.4); Hematocrit 38.9 % (42.0-52.0); Hemoglobin 12.5 g/dL (14.0-18.0); Immature Granulocyte Absolute 0.06 K/mm3 (0.00-0.031); Immature Granulocyte Percent A 0.5 % (0-0.5); Lymphocytes Absolute Auto 0.67 K/mm3 (0.9-3.2); Lymphocytes Percent Auto 5.9 % (18.3-44.2); Mean Corpuscular HGB Conc 32.1 g/dl (32-36); Mean Corpuscular Hemoglobin 28.7 pg (26-34); Mean Corpuscular Volume 89.2 fl (80-100); Mean Platelet Volume 10.8 fl (7.4-10.4); Monocytes Absolute Auto 0.9 K/mm3 (0.1-0.6); Monocytes Percent Auto 7.9 % (2.6-8.5); Neutrophils Absolute Auto 9.7 K/mm3 (1.3-6.7); Neutrophils Percent Auto 85.4 % (45.5-73.1); Platelet Count Result 154 k/mm3 (150-375); Red Blood Count 4.36 M/mm3 (4.6-6.20); Red Cell Distribution Width 17.1 % (11.5-14.5); White Blood Count 11.3 K/mm3 (4.5-10.0)
[2021-02-25 09:48] LABS: Base Excess ABG 0.5 mEq/l (+/-2.0); Carboxyhemoglobin 0.7 % THb (0-2.0); Fractional Inspired Oxygen 21 %; HCO3 ABG 26.4 mEq/l (22.0-26.0); Methemoglobin ABG 0.2 %THb (0-1.5); Oxygen Content ABG 16.4 %vol (16.0-22.0); Oxyhemoglobin 89.7 % THb (90.0-100.0); PO2 ABG 58.3 mmHg (80.0-100.0); PO2 FiO2 Ratio Arterial Blood 2.78 %; Reduced Hemoglobin 9.4 %THb (0-5.0); pH ABG 7.359 (7.350-7.450)
[2021-02-25 09:50] LABS: Device NASAL CANNULA; Modified Allen's Test Pass; Site Drawn LEFT RADIAL
[2021-02-25] MEDS: IPRATROPIUM BR 0.02% INH SOLN 0.5 MG/2.5 ML VIAL INHALATION ×2 (10:00→20:07)
[2021-02-25] MEDS: ALBUTEROL SULFATE NEB 2.5 MG/0.5 ML INH 5 MG INHALATION ×2 (10:00→20:07)
[2021-02-25 10:06] LABS: Alanine Aminotransferase 25 U/L (4-50); Alkaline Phosphatase 90 U/L (38-126); Anion Gap 5 mmol/L (8-16); Aspartate Amino Transferase 54 U/L (17-59); Bilirubin,Total 1.4 mg/dL (0.2-1.3); Blood Urea Nitrogen 22 mg/dL (9-20); Carbon Dioxide 26 mmol/L (22-30); Chloride 104 mmol/L (98-107); Estimated CRCL calculation 42 ml/min; Estimated Glomerular Filt Rate 57; Glucose 126 mg/dL (75-110); Lipase 32 U/L (23-300); Potassium 4.8 mmol/L (3.4-5.0); Sodium 135 mmol/L (137-145)
--- NOTE | 2021-02-25 12:01 | ED.GENADULT ---
HPI - General Adult General Chief complaint: Urogenital-Male Stated complaint: Unable to urinate Time Seen by Provider: 02/25/21 09:04 Source: patient, family, RN notes reviewed and old records reviewed Mode of arrival: ambulatory Limitations: no limitations History of Present Illness HPI narrative: Patient is an 85-year-old male who presents for evaluation of inability to urinate patient had gallbladder removal by Dr. Bo was discharged yesterday and has since been unable to urinate. On arrival patient notes discomfort of the abdomen. Patient also is found to be hypoxic on arrival. Patient noted moderate aching pain throughout the night in the abdomen in the right upper quadrant. Patient notes that he began to take his Eliquis again last night as well. Patient denies injury or trauma or similar occurrence in the past. Patient notes only abdominal pain denies any chest pain. Related Data Home Medications Medication Instructions Recorded Confirmed ascorbic acid (vitamin C) 500 mg 500 mg PO DAILY 09/03/19 02/24/21 chewable tablet cholecalciferol (vitamin D3) 25 2,000 unit PO DAILY cap 09/03/19 02/24/21 mcg (1,000 unit) capsule coenzyme Q10 100 mg capsule 300 mg PO DAILY 09/03/19 02/24/21 paroxetine HCl 20 mg tablet 20 mg PO HS 09/03/19 02/24/21 saw palmetto 450 mg capsule 450 mg PO DAILY cap 09/03/19 02/24/21 tamsulosin 0.4 mg capsule 0.4 mg PO HS 09/03/19 02/24/21 garlic 1,000 mg capsule 1,000 mg PO DAILY 03/04/20 02/24/21 cyanocobalamin (vitamin B-12) 1,000 mcg PO DAILY 04/02/20 02/24/21 calcium carbonate [Antacid Ext Str 750 mg PO DAILY 04/16/20 02/24/21 (calcium carb)] omega-3 fatty acids 1,000 mg 1,000 mg PO BID 12/23/20 02/24/21 capsule Eliquis 5 mg PO Q12HR 02/13/21 02/24/21 amiodarone 200 mg PO HS 02/13/21 02/24/21 cetirizine [Zyrtec] 10 mg PO DAILY 02/13/21 02/24/21 sennosides-docusate sodium 2 tab-cap PO PRN PRN 02/13/21 02/24/21 Allergies Allergy/AdvReac Type Severity Reaction Status Date / Time No Known Allergies Allergy Verified 02/24/21 09:09 Review of Systems Review of Systems: All systems reviewed & are unremarkable except as noted in HPI and below PMFSH Past Medical History Medical History (Updated 02/25/21 @ 12:07 by Melchor Batista PA-C) Abnormal heart rhythm Afib Anxiety Arthritis BPH without obstruction/lower urinary tract symptoms CKD (chronic kidney disease) stage 3, GFR 30-59 ml/min Depression Dyslipidemia Hypertension Overweight (BMI 25.0-29.9) Surgical History Surgical History (Updated 02/25/21 @ 12:02 by Melchor Batista PA-C) History of right knee surgery Hx of cholecystectomy Family History Family History Mother Patient's mother is Hypertension Father Patient's father is Hypertension Social History Social History Smoking status: Never smoker Second hand tobacco smoke exposure: No Alcohol intake: never Substance use: never Substance use type: does not use Gender identity (if verbalized by the patient): Male Spiritual care concerns: No Exam Narrative: Exam Narrative: GENERAL: Well-appearing, well-nourished, and in no acute distress. HEAD: Normocephalic, atraumatic. EYES: PERRLA and EOMI. ENT: Nares clear, no rhinorrhea or epistaxis. Mucous membranes moist. Oropharynx without tonsillar hypertrophy exudate or other lesions. NECK: Supple. No adenopathy or masses. CHEST: Diminished on auscultation. No respiratory distress. No wheezes rales or rhonchi HEART: Regular rate and rhythm. No murmur heard. Normal peripheral pulses. ABDOMEN: Soft, mild tenderness of the abdomen, distended EXTREMITIES: Normal range of motion. No edema. SKIN: Warm, dry, no rash. NEURO: No focal deficits. Alert and oriented x3. Cranial nerves II through XII grossly intact PSYCH: Normal mood and affect
--- NOTE | 2021-02-25 12:30 | PM.IMHP ---
H&P: HPI History of Present Illness Date/Time: 02/25/21 12:30 Chief Complaint: Unable to urinate. Narrative: This is a very pleasant 85-year-old male who had a laparoscopic cholecystectomy yesterday for a gallbladder polyp per Dr. Bo who presented to the emergency department for evaluation after he has been unable to urinate since returning home after his surgery yesterday. His medical history is also significant for benign prostatic hyperplasia, paroxysmal atrial fibrillation, hypertension, dyslipidemia, and chronic kidney disease. A Flowers catheter was inserted with the return of 900 mL of urine almost immediately and he feels much better in that regard. On arrival to the emergency department his SpO2 was 87% on room air and his chest x-ray showed prominent bibasilar infiltrate and/or atelectasis. He gives no history to suggest underlying pneumonia or concerns for aspiration. He has only used his incentive spirometry 1 time since discharge from the hospital as it causes him to have quite a bit of pain at his incision sites. Because of his oxygen requirement he is being admitted for observation. No history of venous thromboembolism and denies lower extremity edema, calf pain, chest pain, pleuritic pain, palpitations, cough, and shortness of breath. No cold or flu symptoms. He denies sick contacts. Review of Systems Review of Systems: Narrative: Twelve systems were reviewed with pertinent positives and negatives as per HPI. Except as documented, all other systems were reviewed and are negative. 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 History of sinus surgery (01/09/07) Family History Family History Mother Patient's mother is Hypertension Father Patient's father is Hypertension Social History Social History (Updated 02/25/21 @ 19:23 by Suellen Freeman PA-C) Social History: The patient lives in [place] with his . 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 Lifelong nonsmoker. No alcohol or illicit substance abuse. He designates his Jina as his surrogate decision maker and he wishes to be a full code. Meds Home Medications and Allergies Home Medications Medication Instructions Recorded Confirmed Type ascorbic acid (vitamin C) 500 mg 500 mg PO DAILY 09/03/19 02/25/21 History chewable tablet cholecalciferol (vitamin D3) 25 2,000 unit PO DAILY cap 09/03/19 02/25/21 History mcg (1,000 unit) capsule coenzyme Q10 100 mg capsule 300 mg PO DAILY 09/03/19 02/25/21 History paroxetine HCl 20 mg tablet 20 mg PO HS 09/03/19 02/25/21 History saw palmetto 450 mg capsule 450 mg PO DAILY cap 09/03/19 02/25/21 History tamsulosin 0.4 mg capsule 0.4 mg PO HS 09/03/19 02/25/21 History garlic 1,000 mg capsule 1,000 mg PO DAILY 03/04/20 02/25/21 History cyanocobalamin (vitamin B-12) 1,000 mcg PO DAILY 04/02/20 02/25/21 History calcium carbonate [Antacid Ext Str 750 mg PO DAILY 04/16/20 02/25/21 History (calcium carb)] omega-3 fatty acids 1,000 mg 1,000 mg PO BID 12/23/20 02/25/21 History capsule Eliquis 5 mg PO Q12HR 02/13/21 02/25/21 History amiodarone 200 mg PO HS 02/13/21 02/25/21 History cetirizine [Zyrtec] 10 mg PO DAILY 02/13/21 02/25/21 History sennosides-docusate sodium 2 tab-cap PO PRN PRN 02/13/21 02/25/21 History hydrocodone-acetaminophen 1 tablet PO Q6H PRN #20 t
--- NOTE | 2021-02-25 12:56 | PM.CNGS ---
Assessment and Plan Assessment and plan (1) Cholecystitis: Code(s): K81.9 - Cholecystitis, unspecified Status: Acute Assessment and Plan: s/p cholecystectomy, exam benign, cont routine postop care (2) Acute urinary retention: Code(s): R33.8 - Other retention of urine Status: Acute Assessment and Plan: placement of garcia cath, would start Flomax (3) Hypoxemia: Code(s): R09.02 - Hypoxemia Status: Acute Assessment and Plan: O2 supplementation, encourage IS/OOB, follow closely History of Present Illness Consult details Consult date: 02/25/21 Reason for consult: abdominal pain Requesting physician: Ale Sage MD Narrative: Pt is a 85 y/o M s/p lap amaya 02/24 presenting to ED c/o urinary retention. Pt also c/o some moderate R sided abdominal pain. Pt found to be hypoxic in ED, c sats in the 80s on RA. Pt reports moderate relief of pain after urinary cath placed. Pt also found to have UTI on labs. Review of Systems Review of Systems: All systems reviewed & are unremarkable except as noted in HPI and below PMFSH Past Medical History Medical History Abnormal heart rhythm Afib Anxiety Arthritis BPH without obstruction/lower urinary tract symptoms CKD (chronic kidney disease) stage 3, GFR 30-59 ml/min Depression Dyslipidemia Hypertension Overweight (BMI 25.0-29.9) Surgical History Surgical History History of right knee surgery Hx of cholecystectomy Family History Family History Mother Patient's mother is Hypertension Father Patient's father is Hypertension Social History Social History Smoking status: Never smoker Second hand tobacco smoke exposure: No Alcohol intake: never Substance use: never Substance use type: does not use Gender identity (if verbalized by the patient): Male Spiritual care concerns: No Meds Home Medications and Allergies Home Medications Medication Instructions Recorded Confirmed Type ascorbic acid (vitamin C) 500 mg 500 mg PO DAILY 09/03/19 02/24/21 History chewable tablet cholecalciferol (vitamin D3) 25 2,000 unit PO DAILY cap 09/03/19 02/24/21 History mcg (1,000 unit) capsule coenzyme Q10 100 mg capsule 300 mg PO DAILY 09/03/19 02/24/21 History paroxetine HCl 20 mg tablet 20 mg PO HS 09/03/19 02/24/21 History saw palmetto 450 mg capsule 450 mg PO DAILY cap 09/03/19 02/24/21 History tamsulosin 0.4 mg capsule 0.4 mg PO HS 09/03/19 02/24/21 History garlic 1,000 mg capsule 1,000 mg PO DAILY 03/04/20 02/24/21 History cyanocobalamin (vitamin B-12) 1,000 mcg PO DAILY 04/02/20 02/24/21 History calcium carbonate [Antacid Ext Str 750 mg PO DAILY 04/16/20 02/24/21 History (calcium carb)] pravastatin 80 mg tablet See Rx Instructions .ROUTE 10/13/20 02/24/21 Rx .COMPLEX #90 tablet omega-3 fatty acids 1,000 mg 1,000 mg PO BID 12/23/20 02/24/21 History capsule Eliquis 5 mg PO Q12HR 02/13/21 02/24/21 History amiodarone 200 mg PO HS 02/13/21 02/24/21 History cetirizine [Zyrtec] 10 mg PO DAILY 02/13/21 02/24/21 History sennosides-docusate sodium 2 tab-cap PO PRN PRN 02/13/21 02/24/21 History hydrocodone-acetaminophen 1 tablet PO Q6H PRN #20 tablet 02/24/21 Rx Allergies Allergy/AdvReac Type Severity Reaction Status Date / Time No Known Allergies Allergy Verified 02/24/21 09:09 Vital Signs Vital Signs - 24 hr 02/25/21 08:34 02/25/21 08:39 02/25/21 08:44 Temperature 37.2 C 37.2 C Pulse Rate 70 70 64 Respiratory Rate 16 16 26 H Blood Pressure 174/68 H 174/68 H Pulse Oximetry 87 L 90 90 02/25/21 08:45 02/25/21 08:46 02/25/21 09:06 Temperature Pulse Rate 63 64 64 Respiratory Rate 28 H 26 H 23 H Blood Pressure 162/66 H
--- NOTE | 2021-02-25 14:28 | ADMGEN ---
This patient, Glen Miles, was admitted to 3 Med Surg Room [id number]. Patient/family oriented to hospital policies and general routines including ID bracelet, bed and alarms, visiting hours, pain management, procedures, bathroom and other care routines, personal items, smoking policy, room service/diet, and visiting hours. Information on how to activate the Rapid Response Team has been discussed. Patient/Family are encouraged to report perceived risks to care and to ask questions if they do not understand what they are told or what they should do.
[2021-02-25] MEDS: LACTATED RINGERS 1,000 ML 75 ML IV CONT (15:38)
[2021-02-25] MEDS: HYDROcodone/acetaminophen (*CRX) 5-325 MG TABLET 1 TAB PO (15:38)
[2021-02-25] MEDS: OMEGA 3 POLYUNSAT FATTY ACIDS 1 GM CAP PO (18:16)
[2021-02-25] MEDS: APIXABAN 5 MG TABLET PO (21:08)
[2021-02-25] MEDS: FAMOTIDINE 20 MG/2 ML VIAL IV PUSH (21:08)
[2021-02-25] MEDS: PRAVASTATIN SODIUM 20 MG TABLET 80 MG PO (21:08)
[2021-02-25] MEDS: TAMSULOSIN HCL 0.4 MG CAPSULE PO (21:09)
[2021-02-25] MEDS: AMIODARONE HCL 200 MG TABLET PO (21:09)
[2021-02-25] MEDS: PARoxetine 20 MG TABLET PO (21:10)
[2021-02-26] VITALS (8 sets, daily range): BP systolic 119–137; BP diastolic 50–66; PULSE 68–93; RESP 18–20; TEMP 36.5–37.1; O2SAT 91–95
[2021-02-26] MEDS: ALBUTEROL SULFATE NEB 2.5 MG/0.5 ML INH 5 MG INHALATION ×2 (02:07→08:19)
[2021-02-26] MEDS: IPRATROPIUM BR 0.02% INH SOLN 0.5 MG/2.5 ML VIAL INHALATION ×2 (02:07→08:19)
[2021-02-26] MEDS: LACTATED RINGERS 1,000 ML 75 ML IV CONT (04:19)
[2021-02-26 06:28] LABS: Basophils Percent Auto 0.4 % (0.2-1.2); Eosinophils Absolute Auto 0.2 K/mm3 (0-0.3); Eosinophils Percent Auto 1.6 % (0-4.4); Hemoglobin 11.1 g/dL (14.0-18.0); Immature Granulocyte Absolute 0.02 K/mm3 (0.00-0.031); Immature Granulocyte Percent A 0.2 % (0-0.5); Lymphocytes Absolute Auto 0.91 K/mm3 (0.9-3.2); Lymphocytes Percent Auto 8.8 % (18.3-44.2); Mean Corpuscular HGB Conc 31.7 g/dl (32-36); Mean Corpuscular Hemoglobin 28.1 pg (26-34); Mean Corpuscular Volume 88.6 fl (80-100); Mean Platelet Volume 11.5 fl (7.4-10.4); Monocytes Absolute Auto 0.7 K/mm3 (0.1-0.6); Monocytes Percent Auto 7.1 % (2.6-8.5); Neutrophils Absolute Auto 8.5 K/mm3 (1.3-6.7); Neutrophils Percent Auto 81.9 % (45.5-73.1); Platelet Count Result 145 k/mm3 (150-375); Red Blood Count 3.95 M/mm3 (4.6-6.20); Red Cell Distribution Width 17.2 % (11.5-14.5); White Blood Count 10.3 K/mm3 (4.5-10.0)
[2021-02-26 06:52] LABS: Alanine Aminotransferase 17 U/L (4-50); Albumin Level 3.3 g/dL (3.5-5.1); Alkaline Phosphatase 83 U/L (38-126); Anion Gap 1 mmol/L (8-16); Aspartate Amino Transferase 32 U/L (17-59); Blood Urea Nitrogen 15 mg/dL (9-20); Calcium 8.9 mg/dL (8.4-10.2); Carbon Dioxide 31 mmol/L (22-30); Chloride 105 mmol/L (98-107); Estimated CRCL calculation 42 ml/min; Estimated Glomerular Filt Rate 57; Glucose 110 mg/dL (75-110); Potassium 4.5 mmol/L (3.4-5.0); Sodium 137 mmol/L (137-145)
[2021-02-26] MEDS: CHOLECALCIFEROL 1,000 UNITS TABLET 2000 UNITS PO (08:55)
[2021-02-26] MEDS: OMEGA 3 POLYUNSAT FATTY ACIDS 1 GM CAP PO (08:55)
[2021-02-26] MEDS: ASCORBIC ACID 500 MG TABLET PO (08:56)
[2021-02-26] MEDS: CYANOCOBALAMIN 1,000 MCG TABLET 1000 MCG PO (08:56)
[2021-02-26] MEDS: CALCIUM CARBONATE (TUMS) 500 MG (200 MG ELEMENTAL) PO (08:56)
[2021-02-26] MEDS: APIXABAN 5 MG TABLET PO (08:56)
[2021-02-26] MEDS: LORATADINE 10 MG TABLET PO (08:56)
[2021-02-26] MEDS: FAMOTIDINE 20 MG/2 ML VIAL IV PUSH (08:56)
--- NOTE | 2021-02-26 12:06 | PM.PNGS ---
Progress Note: A&P Assessment and Plan (1) Cholecystitis: Code(s): K81.9 - Cholecystitis, unspecified Status: Acute Assessment and Plan: Tolerating a diet. Pain well controlled. Continue PRN oral analgesics. Continue routine post-op care. (2) Acute urinary retention: Code(s): R33.8 - Other retention of urine Status: Acute Assessment and Plan: Continue Flowers catheter and Flomax. Management per primary service. (3) Hypoxemia: Code(s): R09.02 - Hypoxemia Status: Acute Assessment and Plan: O2 supplementation. Encouraged nurse to try weaning O2 off. Encourage IS/OOB. Management per Hospitalist. Additional Plan Discussed plan of care with Dr. Bo. If hypoxia resolves and he is medically stable, okay from a surgical standpoint to discharge patient and keep scheduled f/u with Dr. Bo as an outpatient. Subjective Subjective Date/Time Seen: 02/26/21 12:06 Post Op day: 2 (lap amaya) Patient reports: no new complaints, feels better and tolerating a regular diet Interval history: Patient feeling much better today. Flowers in place. Reports some soreness from abdominal incisions but well controlled. No other complaints at this time. Review of Systems Review of Systems: All systems reviewed & are unremarkable except as noted in HPI and below Exam Const: General: comfortable, no acute distress, alert and awake Orientation/consciousness: patient oriented x3 GI: Inspection: non-distended and incision (Abdominal incisions clean and dry, glue intact.) GI Palp: Yes Soft to palpation and Yes Tenderness to palpation present (GI) (incisional) Auscultation: normal bowel sounds Urinary Catheter: Urinary Catheter: patent and draining and urine clear Skin: General skin exam: normal color Psych: Mental Status: mental status grossly normal Judgement: Good judgement present (Psych) Objective Data Vital Signs Vital Signs: Vital Signs - 24 hr 02/25/21 12:15 02/25/21 12:30 02/25/21 12:45 Temperature Pulse Rate 62 Respiratory Rate 16 20 19 Blood Pressure Pulse Oximetry 92 96 02/25/21 12:53 02/25/21 13:00 02/25/21 13:01 Temperature Pulse Rate Respiratory Rate 20 17 18 Blood Pressure 161/83 H 174/78 H Pulse Oximetry 90 02/25/21 13:15 02/25/21 13:16 02/25/21 14:00 Temperature 97.9 F Pulse Rate 65 Respiratory Rate 18 21 H 20 Blood Pressure 161/75 H 160/61 H Pulse Oximetry 97 02/25/21 20:10 02/25/21 20:22 02/25/21 22:00 Temperature 98.8 F Pulse Rate 64 63 66 Respiratory Rate 18 18 18 Blood Pressure 133/57 L Pulse Oximetry 92 95 02/26/21 02:05 02/26/21 02:18 02/26/21 05:25 Temperature 98.8 F Pulse Rate 68 70 71 Respiratory Rate 18 18 18 Blood Pressure 137/66 Pulse Oximetry 92 02/26/21 08:00 02/26/21 08:20 02/26/21 08:30 Temperature 97.9 F Pulse Rate 72 69 72 Respiratory Rate 20 20 20 Blood Pressure 132/53 L Pulse Oximetry 92 92 Intake/Output Intake/Output: Intake & Output 02/23/21 02/24/21 02/25/21 02/26/21 23:59 23:59 23:59 23:59 Intake Total 340 1250 Output Total 250 1250 Balance 90 0 Meds/Results Medications: Active Medications Generic Name Dose Route Start Last Admin Trade Name Freq PRN Reason Stop Dose Admin Hydrocodone Bitart/Acetaminophen 1 tab 02/25/21 15:13 02/25/21 15:38 Hydrocodone/Acetaminophen (*Crx) 5-325 Mg Tablet PO 1 tab Q6H PRN Administration pain 4-6 Albuterol 5 mg 02/25/21 14:00 02/26/21 08:19 Albuterol Sulfate Neb 2.5 Mg/0.5 Ml Inh INHALATION 5 mg Q6HRT GERMAN Administration Amiodarone HCl 200 mg 02/25/21 21:00 02/25/21 21:09 Amiodarone Hcl 200 Mg Tablet PO 200 mg HS GERMAN Administration Apixaban 5 mg 02/25/21 21:00 02/26/21 08:56 Apixaban 5 Mg Tablet PO 5 mg Q12HR GERMAN Administration Ascorbic Acid 500 mg 02/26/21 09:00 02/26/21 08:56 Ascorbic Acid 500 Mg Tablet PO 500 mg DAILY GERMAN Administration
--- NOTE | 2021-02-26 14:20 | PM.DS ---
DS: Admitting Diagnosis Admitting Diagnosis Admitting Diagnosis: (1) Urinary retention: Code(s): R33.9 - Retention of urine, unspecified Status: Acute (2) History of laparoscopic cholecystectomy: Onset Date: 02/24/21 Code(s): Z90.49 - Acquired absence of other specified parts of digestive tract Status: Acute (3) Hypoxia: Code(s): R09.02 - Hypoxemia Status: Acute (4) Pulmonary infiltrate on chest x-ray: Code(s): R91.8 - Other nonspecific abnormal finding of lung field Status: Acute (5) Paroxysmal atrial fibrillation: Code(s): I48.0 - Paroxysmal atrial fibrillation Status: Acute (6) Current use of shelter anticoagulation: Code(s): Z79.01 - direct mail manager (current) use of anticoagulants Status: Acute (7) Benign prostatic hyperplasia: Code(s): N40.0 - Benign prostatic hyperplasia without lower urinary tract symptoms Status: Acute DS: Discharge Diagnosis Discharge Diagnosis (1) Current use of wash driller anticoagulation: Code(s): Z79.01 - FDC (current) use of anticoagulants Status: Acute (2) History of laparoscopic cholecystectomy: Onset Date: 02/24/21 Code(s): Z90.49 - Acquired absence of other specified parts of digestive tract Status: Acute (3) Gallbladder polyp: Code(s): K82.4 - Cholesterolosis of gallbladder Status: Acute (4) Gastroesophageal reflux disease: Code(s): K21.9 - Gastro-esophageal reflux disease without esophagitis Status: Acute (5) Benign prostatic hyperplasia: Code(s): N40.0 - Benign prostatic hyperplasia without lower urinary tract symptoms Status: Acute (6) Paroxysmal atrial fibrillation: Code(s): I48.0 - Paroxysmal atrial fibrillation Status: Acute (7) Peripheral neuropathy: Code(s): G62.9 - Polyneuropathy, unspecified Status: Acute (8) Cholecystitis: Code(s): K81.9 - Cholecystitis, unspecified Status: Acute (9) Acute urinary retention: Code(s): R33.8 - Other retention of urine Status: Acute (10) CKD (chronic kidney disease) stage 3, GFR 30-59 ml/min: Code(s): N18.30 - Chronic kidney disease, stage 3 unspecified Status: Acute DS: Summary Hospital Course Reason for hospitalization: laparoscopic cholecystectomy w post op urinary retention and hypoxia Hospital Course: The patient is status post laparoscopic cholecystectomy yesterday for gallbladder polyp and he has been unable to urinate since surgery. Flowers catheter drained 1 liter of urine thus far and is feeling better in that regard. He was mildly hypoxic on arrival to the emergency department chest x-ray does show bilateral pulmonary infiltrates felt to be atelectasis as the patient is avoiding taking deep breaths as it causes his incision sites to hurt. Pneumonia is less likely at this time. Incentive spirometry encouraged. Wean oxygen as tolerated. Continue tamsulosin for BPH. Currently sounds to be in a sinus rhythm in amiodarone will be continued. I believe his Eliquis was resumed today. The rest of his home medications will be reviewed and resumed as appropriate. Vital signs were reviewed and they are stable. Pt monitored overnight and weaned from oxygen. He was asymptomatic at time of discharge but did have to go home w Flowers catheter for urinary retention. He is part of a HMO plan and, therefore advised to follow up w his PCP for referral to urology for ongoing care. discharged home in stable condition on RA, afebrile, advised to use incentive spirometry, encouraged to mobilize and ambulate, and to follow up w PCP. charles noted in urine, asymptomatic and on amiodarone. antifungal therapy deferred to PCP if considered appropriate at time of followup. Time Spent with Patient Time attestation: Total time spent providing and/or coordinating discharge services: 35min DS: Data Data Completed and Pending Labs on day
--- NOTE | 2021-02-27 08:01 | PCRCNOTE ---
Pt had a Six minute walk test ordered, which I assume was intented to assess need for home oxygen. Unfortunately pt was discharged before it was completed. Pt appeared to be weaned to room air and discharged without any O2 needs.
== END 2021-02-26 16:50 | disposition home or self-care (01) ==
LOC: ANHED 12:07 → ANH3MEDSUR 02-26 14:20
PROVIDERS: Emergency Medicine Emergency Medical Services; Admitting Provider Family Medicine; Emergency Provider Emergency Medicine; PCP Internal Medicine; Visit Provider Hospitalist
DX: R33.9 Retention of urine, unspecified (principal); R09.02 Hypoxemia; Z98.890 Other specified postprocedural states; Z90.49 Acquired absence of other specified parts of digestive tract; R91.8 Other nonspecific abnormal finding of lung field; I48.0 Paroxysmal atrial fibrillation; I12.9 Hypertensive chronic kidney disease with stage 1 through stage 4 chronic kidney disease, or unspecified chronic kidney disease; N18.30 Chronic kidney disease, stage 3 unspecified; E78.5 Hyperlipidemia, unspecified; N40.0 Benign prostatic hyperplasia without lower urinary tract symptoms; F41.8 Other specified anxiety disorders; K21.9 Gastro-esophageal reflux disease without esophagitis; Z79.01 Long term (current) use of anticoagulants; Z86.16 Personal history of COVID-19
CPT/HCPCS: 36415; 36600; 51702; 71045; 80053; 81001; 82375; 82805; 83050; 83690; 85025; 87086; 94640; 96361; 96365; 96375; 96376; 97161; 99285; A9270; G0378; J0696; J7120

== ENCOUNTER 2021-02-27 15:45 | Emergency (ER) | payer MEDICARE, SELFPAY ==
[2021-02-27 15:52] VITALS: BP 126/57; PULSE 71; RESP 18; TEMP 36.6; O2SAT 92
[2021-02-27 16:01] VITALS: BP 150/65; PULSE 68; RESP 26; O2SAT 92
[2021-02-27 16:17] VITALS: BP 132/53; RESP 27; O2SAT 90
--- NOTE | 2021-02-27 16:18 | ED.GENADULT ---
HPI - General Adult General Chief complaint: Urogenital-Male Stated complaint: urinary retention Time Seen by Provider: 02/27/21 15:51 Source: patient Limitations: no limitations History of Present Illness HPI narrative: 85-year-old male Patient had his gallbladder out 4 days ago here 1 day after discharge he had to return because of urinary retention and was discharged with a Flowers yesterday Today he returns complaining of discomfort due to the Flowers catheter and a feeling like he might be constipated Related Data Home Medications Medication Instructions Recorded Confirmed ascorbic acid (vitamin C) 500 mg 500 mg PO DAILY 09/03/19 02/25/21 chewable tablet cholecalciferol (vitamin D3) 25 2,000 unit PO DAILY cap 09/03/19 02/25/21 mcg (1,000 unit) capsule coenzyme Q10 100 mg capsule 300 mg PO DAILY 09/03/19 02/25/21 paroxetine HCl 20 mg tablet 20 mg PO HS 09/03/19 02/25/21 saw palmetto 450 mg capsule 450 mg PO DAILY cap 09/03/19 02/25/21 tamsulosin 0.4 mg capsule 0.4 mg PO HS 09/03/19 02/25/21 garlic 1,000 mg capsule 1,000 mg PO DAILY 03/04/20 02/25/21 cyanocobalamin (vitamin B-12) 1,000 mcg PO DAILY 04/02/20 02/25/21 calcium carbonate [Antacid Ext Str 750 mg PO DAILY 04/16/20 02/25/21 (calcium carb)] omega-3 fatty acids 1,000 mg 1,000 mg PO BID 12/23/20 02/25/21 capsule Eliquis 5 mg PO Q12HR 02/13/21 02/25/21 amiodarone 200 mg PO HS 02/13/21 02/25/21 cetirizine [Zyrtec] 10 mg PO DAILY 02/13/21 02/25/21 sennosides-docusate sodium 2 tab-cap PO PRN PRN 02/13/21 02/25/21 pravastatin 80 mg PO HS 02/25/21 02/25/21 Allergies Allergy/AdvReac Type Severity Reaction Status Date / Time No Known Allergies Allergy Verified 02/27/21 18:41 Review of Systems Review of Systems: All systems reviewed & are unremarkable except as noted in HPI and below Constitutional: Constitutional: Reports no additional constitutional complaints, Denies chills, Reports fatigue, Denies fever(s), Denies headache(s) and Reports weakness Eyes: Eyes: Reports no additional eye complaints and Denies change in vision ENT: Denies headache(s) and Denies sore throat Cardiovascular: Cardiovascular: Denies chest pain and Denies dyspnea Respiratory: Respiratory: Denies cough and Denies dyspnea Gastrointestinal: Gastrointestinal: Reports abdominal pain, Reports bloating, Reports constipation, Denies diarrhea and Denies vomiting Genitourinary: Genitourinary: Reports oliguria, Reports dysuria and Denies urinary frequency Musculoskeletal: Musculoskeletal: Denies deformity and Denies numbness Integumentary/Breasts: Skin/Breast: Denies wounds [facility] Past Medical History Medical History (Updated 02/27/21 @ 19:03 by Otto Alfaro MD) Anxiety Arthritis Benign prostatic hyperplasia Chronic kidney disease, stage 3 COVID-19 (09/2020) 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 History of sinus surgery (01/09/07) Family History Family History Mother Patient's mother is Hypertension Father Patient's father is Hypertension Social History Social History (Updated 02/25/21 @ 19:23 by Suellen Freeman PA-C) Social History: The patient lives in [place] with his . Retired from a [employer] company. Lifelong nonsmoker. No alcohol or illicit substance abuse. He designates his Jina as his surrogate decision maker and he wishes to be a full code. Gender identity (if verbalized by the patient): Male Exam Const: General: cooperative, no acute distress and alert HENMT: Head: no
[2021-02-27 16:32] VITALS: BP 148/66; PULSE 69; RESP 22; O2SAT 91
[2021-02-27 16:32] LABS: Basophils Percent Auto 0.1 % (0.2-1.2); Eosinophils Absolute Auto 0.1 K/mm3 (0-0.3); Eosinophils Percent Auto 1.2 % (0-4.4); Hematocrit 33.6 % (42.0-52.0); Hemoglobin 10.9 g/dL (14.0-18.0); Immature Granulocyte Absolute 0.04 K/mm3 (0.00-0.031); Immature Granulocyte Percent A 0.5 % (0-0.5); Lymphocytes Absolute Auto 0.74 K/mm3 (0.9-3.2); Mean Corpuscular HGB Conc 32.4 g/dl (32-36); Mean Corpuscular Hemoglobin 29.2 pg (26-34); Mean Corpuscular Volume 90.1 fl (80-100); Mean Platelet Volume 10.7 fl (7.4-10.4); Monocytes Absolute Auto 0.8 K/mm3 (0.1-0.6); Monocytes Percent Auto 9.4 % (2.6-8.5); Neutrophils Absolute Auto 6.6 K/mm3 (1.3-6.7); Neutrophils Percent Auto 79.8 % (45.5-73.1); Platelet Count Result 146 k/mm3 (150-375); Red Blood Count 3.73 M/mm3 (4.6-6.20); White Blood Count 8.2 K/mm3 (4.5-10.0)
[2021-02-27] MEDS: MAGNESIUM CITRATE 300 ML BTL PO (16:33)
[2021-02-27] MEDS: polyethylene glycoL 3350 17 GM POWD.PACK PO (16:33)
[2021-02-27 16:43] LABS: Alanine Aminotransferase 22 U/L (4-50); Albumin Level 3.4 g/dL (3.5-5.1); Alkaline Phosphatase 85 U/L (38-126); Anion Gap 5 mmol/L (8-16); Aspartate Amino Transferase 45 U/L (17-59); Blood Urea Nitrogen 19 mg/dL (9-20); Carbon Dioxide 27 mmol/L (22-30); Chloride 104 mmol/L (98-107); Estimated CRCL calculation 34 ml/min; Estimated Glomerular Filt Rate 44; Glucose 116 mg/dL (75-110); Lipase 62 U/L (23-300); Potassium 4.2 mmol/L (3.4-5.0); Sodium 136 mmol/L (137-145)
[2021-02-27 16:46] VITALS: BP 166/89; PULSE 73; RESP 28; O2SAT 94
[2021-02-27] MEDS: ONDANSETRON INJ 4 MG/2 ML VIAL IV PUSH (16:57)
[2021-02-27] MEDS: LACTATED RINGERS 1,000 ML 150 ML IV CONT (16:58)
[2021-02-27 17:46] VITALS: BP 128/88; PULSE 69; RESP 23; O2SAT 88
--- NOTE | 2021-03-13 03:06 | PC.NURSE ---
LATE ENTRY This note is being entered to document information to the patient's record. The following information was omitted on [], 02/28/21 01:45 david alonso [].
== END 2021-02-27 20:15 | disposition home or self-care (01) ==
PROVIDERS: Emergency Provider Emergency Medicine; PCP Internal Medicine
DX: Z46.6 Encounter for fitting and adjustment of urinary device (principal); K59.00 Constipation, unspecified; I48.0 Paroxysmal atrial fibrillation; N40.0 Benign prostatic hyperplasia without lower urinary tract symptoms; I12.9 Hypertensive chronic kidney disease with stage 1 through stage 4 chronic kidney disease, or unspecified chronic kidney disease; N18.30 Chronic kidney disease, stage 3 unspecified; Z86.16 Personal history of COVID-19; E78.5 Hyperlipidemia, unspecified; G62.9 Polyneuropathy, unspecified; M19.90 Unspecified osteoarthritis, unspecified site; Z79.01 Long term (current) use of anticoagulants
CPT/HCPCS: 36415; 51702; 80053; 83690; 85025; 96374; 99284; A9270; J2405; J7120

== ENCOUNTER → 2021-10-16 11:58 | Outpatient (CLI) | payer MEDICARE, SELFPAY ==
--- NOTE | ~2021-10-16 | MR_ITS ---
EXAMINATION: MR lumbar spine wo con DATE: 10/16/2021 12:26 INDICATION: Lumbar radiculopathy TECHNIQUE: Magnetic resonance imaging (MRI) of the lumbar spine was performed without intravenous con trast. Sequences included sagittal T2-weighted FSE, sagittal T2-weighted FS FSE, sagittal T1-weighted FSE, and axial T2-weighted FSE. COMPARISON: None FINDINGS: 8 mm lumbar dextrocurvature between L2 and L5. Chronic L4 compression fracture with mild left-sided v ertebral body height loss. Additional mild central vertebral body height loss with likely chronic end plate compression fractures inferiorly at L3 and L5 and at the superior endplate of S1. Small Schmorl 's nodes at the inferior endplate of T11 and the superior and inferior endplates of L1. Remaining kinjal tebral body heights are normal. Mild to moderate left-sided predominant disc height loss at L4-L5 wit h mild thoracic degenerative endplate changes at the left side of both endplates. Marrow signal is ot herwise normal. Additional moderate disc height loss at L5-S1 disc desiccation and mild disc height l oss at the remaining levels from T11-T12 through L3-L4. The conus medullaris terminates at L1. There is normal signal in the caudal spinal cord. Paravertebral soft tissues are unremarkable. The followin g disc levels are specifically discussed: T12-L1: The disc does not extend beyond the endplate margin. There is mild bilateral facet joint oste oarthritis. There is no neural foraminal stenosis. There is no central canal stenosis. L1-L2: Disc is mildly bulging. There is hypertrophy of the ligamentum flavum. There is mild bilatera l facet joint osteoarthritis. There is mild bilateral neural foraminal stenosis. There is mild centra l canal stenosis. L2-L3: Disc is mildly bulging. There is hypertrophy of the ligamentum flavum. There is mild bilateral facet joint osteoarthritis. There is moderate left and mild to moderate right neural foraminal steno sis. There is mild central canal stenosis. L3-L4: Disc is bulging. There is hypertrophy of the ligamentum flavum. There is mild left and mild to moderate right facet joint osteoarthritis. There is moderate left and mild to moderate right neural foraminal stenosis. There is mild to moderate central canal stenosis with narrowing of the left and r ight lateral recesses. L4-L5: Disc is bulging with annular fissure. There is asymmetric left-sided predominant hypertrophy o f the ligamentum flavum. There is moderate left and severe right facet joint osteoarthritis. There is moderate bilateral neural foraminal stenosis. There is moderate central canal stenosis. There is als o narrowing of the lateral recesses, severe on the left. L5-S1: Disc is mildly bulging. There is moderate bilateral facet joint osteoarthritis. There is moder ate left and mild to moderate right neural foraminal stenosis. There is no central canal stenosis. IMPRESSION: 1. Mild lumbar dextrocurvature with moderate spondylosis. 2. Chronic mild left-sided compression fracture at L4 and endplate compression fractures at L5 and S1 . Reviewed, dictated and finalized at location B. ING CHEF IMPRESSION: 1. Mild lumbar dextrocurvature with moderate spondylosis. 2. Chronic mild left-sided compression fracture at L4 and endplate compression fractures at L5 and S1.
== END ==
PROVIDERS: Visit Provider Nurse Practitioner Adult Health
DX: M47.26 Other spondylosis with radiculopathy, lumbar region (principal); S32.050A Wedge compression fracture of fifth lumbar vertebra, initial encounter for closed fracture; X58.XXXA Exposure to other specified factors, initial encounter
CPT/HCPCS: 72148

== ENCOUNTER 2021-10-20 08:43 | Outpatient (CLI) | payer MEDICARE, SELFPAY ==
[2021-10-20 09:08] LABS: Basophils Percent Auto 0.6 % (0.2-1.2); Eosinophils Absolute Auto 0.1 K/mm3 (0-0.3); Eosinophils Percent Auto 2.9 % (0-4.4); Hematocrit 40.9 % (42.0-52.0); Hemoglobin 13.2 g/dL (14.0-18.0); Immature Granulocyte Absolute 0.02 K/mm3 (0.00-0.031); Immature Granulocyte Percent A 0.4 % (0-0.5); Lymphocytes Absolute Auto 1.51 K/mm3 (0.9-3.2); Lymphocytes Percent Auto 31.3 % (18.3-44.2); Mean Corpuscular HGB Conc 32.3 g/dl (32-36); Mean Corpuscular Hemoglobin 31.1 pg (26-34); Mean Corpuscular Volume 96.2 fl (80-100); Mean Platelet Volume 11.6 fl (7.4-10.4); Monocytes Absolute Auto 0.4 K/mm3 (0.1-0.6); Monocytes Percent Auto 8.3 % (2.6-8.5); Neutrophils Absolute Auto 2.7 K/mm3 (1.3-6.7); Neutrophils Percent Auto 56.5 % (45.5-73.1); Platelet Count Result 155 k/mm3 (150-375); Red Blood Count 4.25 M/mm3 (4.6-6.20); Red Cell Distribution Width 14.7 % (11.5-14.5); White Blood Count 4.8 K/mm3 (4.5-10.0)
[2021-10-20 09:22] LABS: Alanine Aminotransferase 22 U/L (4-50); Albumin Level 4.2 g/dL (3.5-5.1); Alkaline Phosphatase 81 U/L (38-126); Anion Gap 10 mmol/L (8-16); Aspartate Amino Transferase 32 U/L (17-59); Bilirubin,Total 0.7 mg/dL (0.2-1.3); Blood Urea Nitrogen 20 mg/dL (9-20); Calcium 9.1 mg/dL (8.4-10.2); Carbon Dioxide 26 mmol/L (22-30); Chloride 105 mmol/L (98-107); Cholesterol 186 mg/dL (0-200); Estimated Glomerular Filt Rate 41; Glucose 122 mg/dL (65-110); HDL Direct 51 mg/dL; Potassium 4.3 mmol/L (3.4-5.0); Sodium 141 mmol/L (137-145); Triglycerides 238 mg/dL (<150)
[2021-10-20 09:48] LABS: LDL Cholesterol Direct 31 mg/dL
[2021-10-20 10:28] LABS: Folic Acid 4.6 ng/mL (2.76->20)
== END 2021-10-20 08:44 | disposition home or self-care (01) ==
PROVIDERS: PCP Internal Medicine; Visit Provider Internal Medicine
DX: R53.83 Other fatigue (principal); R73.9 Hyperglycemia, unspecified; E78.5 Hyperlipidemia, unspecified
CPT/HCPCS: 36415; 80053; 80061; 82607; 82746; 84443; 85025

== ENCOUNTER 2022-12-24 09:52 | Outpatient (CLI) | payer MEDICARE, SELFPAY ==
[2022-12-24 11:05] LABS: Basophils Percent Auto 0.9 % (0.2-1.2); Eosinophils Absolute Auto 0.2 K/mm3 (0-0.3); Eosinophils Percent Auto 3.6 % (0-4.4); Hematocrit 41.2 % (42.0-52.0); Hemoglobin 13.3 g/dL (14.0-18.0); Immature Granulocyte Absolute 0.01 K/mm3 (0.00-0.031); Immature Granulocyte Percent A 0.2 % (0-0.5); Lymphocytes Absolute Auto 1.14 K/mm3 (0.9-3.2); Lymphocytes Percent Auto 24.4 % (18.3-44.2); Mean Corpuscular HGB Conc 32.3 g/dl (32-36); Mean Corpuscular Hemoglobin 30.7 pg (26-34); Mean Corpuscular Volume 95.2 fl (80-100); Mean Platelet Volume 12.1 fl (7.4-10.4); Monocytes Absolute Auto 0.4 K/mm3 (0.1-0.6); Monocytes Percent Auto 7.5 % (2.6-8.5); Neutrophils Percent Auto 63.4 % (45.5-73.1); Platelet Count Result 143 k/mm3 (150-375); Red Blood Count 4.33 M/mm3 (4.6-6.20); Red Cell Distribution Width 14.6 % (11.5-14.5); White Blood Count 4.7 K/mm3 (4.5-10.0)
[2022-12-24 11:27] LABS: Alanine Aminotransferase 21 U/L (6-50); Albumin Level 4.3 g/dL (3.5-5.1); Alkaline Phosphatase 71 U/L (38-126); Anion Gap 5 mmol/L (8-16); Aspartate Amino Transferase 30 U/L (17-59); Blood Urea Nitrogen 21 mg/dL (9-20); Carbon Dioxide 28 mmol/L (22-30); Chloride 107 mmol/L (98-107); Cholesterol 189 mg/dL (0-200); Estimated Glomerular Filt Rate 48; Glucose 109 mg/dL (65-110); HDL Direct 54 mg/dL; Potassium 4.4 mmol/L (3.4-5.0); Sodium 140 mmol/L (137-145); Triglycerides 290 mg/dL (<150)
[2022-12-24 11:36] LABS: LDL Cholesterol Direct 33 mg/dL
[2022-12-24 11:37] LABS: Parathyroid Intact 68.6 pg/mL (7.5-53.5)
[2022-12-24 11:41] LABS: Free T4 Free Thyroxine 0.57 ng/mL (0.78-2.19)
== END 2022-12-24 09:53 | disposition home or self-care (01) ==
PROVIDERS: PCP Internal Medicine; Visit Provider Internal Medicine
DX: E03.9 Hypothyroidism, unspecified (principal); E78.5 Hyperlipidemia, unspecified; N18.30 Chronic kidney disease, stage 3 unspecified; R53.83 Other fatigue
CPT/HCPCS: 36415; 80053; 80061; 82607; 82746; 83970; 84439; 84443; 85025

== ENCOUNTER 2023-04-05 08:52 | Outpatient (CLI) | payer MEDICARE, SELFPAY ==
[2023-04-05 10:07] LABS: Thyroid Stimulating Hormone 0.556 uIU/mL (0.465-4.680)
[2023-04-05 10:21] LABS: Free T4 Free Thyroxine 1.62 ng/mL (0.78-2.19)
[2023-04-05 10:38] LABS: Parathyroid Intact 93.7 pg/mL (7.5-53.5)
== END 2023-04-05 08:53 | disposition home or self-care (01) ==
PROVIDERS: PCP Internal Medicine; Visit Provider Internal Medicine
DX: E03.9 Hypothyroidism, unspecified (principal); R79.89 Other specified abnormal findings of blood chemistry
CPT/HCPCS: 36415; 83970; 84439; 84443

== ENCOUNTER 2023-11-09 14:12 | Outpatient (CLI) | payer MEDICARE, SELFPAY ==
[2023-11-09 14:55] LABS: Basophils Percent Auto 0.7 % (0.2-1.2); Eosinophils Absolute Auto 0.1 K/mm3 (0-0.3); Eosinophils Percent Auto 1.8 % (0-4.4); Hematocrit 40.6 % (42.0-52.0); Hemoglobin 12.7 g/dL (14.0-18.0); Immature Granulocyte Absolute 0.02 K/mm3 (0.00-0.031); Immature Granulocyte Percent A 0.4 % (0-0.5); Lymphocytes Absolute Auto 1.02 K/mm3 (0.9-3.2); Lymphocytes Percent Auto 18.4 % (18.3-44.2); Mean Corpuscular HGB Conc 31.3 g/dl (32-36); Mean Corpuscular Hemoglobin 29.2 pg (26-34); Mean Corpuscular Volume 93.3 fl (80-100); Mean Platelet Volume 12.3 fl (7.4-10.4); Monocytes Absolute Auto 0.5 K/mm3 (0.1-0.6); Neutrophils Absolute Auto 3.9 K/mm3 (1.3-6.7); Neutrophils Percent Auto 69.7 % (45.5-73.1); Platelet Count Result 135 k/mm3 (150-375); Red Blood Count 4.35 M/mm3 (4.6-6.20); Red Cell Distribution Width 15.9 % (11.5-14.5); White Blood Count 5.5 K/mm3 (4.5-10.0)
[2023-11-09 15:11] LABS: Alanine Aminotransferase 19 U/L (6-50); Alkaline Phosphatase 77 U/L (38-126); Anion Gap 5 mmol/L (8-16); Aspartate Amino Transferase 31 U/L (17-59); Bilirubin,Total 0.9 mg/dL (0.2-1.3); Blood Urea Nitrogen 28 mg/dL (9-20); Calcium 9.3 mg/dL (8.4-10.2); Carbon Dioxide 27 mmol/L (22-30); Chloride 107 mmol/L (98-107); Estimated Glomerular Filt Rate 41; Glucose 98 mg/dL (65-110); Potassium 5.3 mmol/L (3.4-5.0); Sodium 139 mmol/L (137-145)
[2023-11-09 15:40] LABS: Free T4 Free Thyroxine 1.83 ng/mL (0.78-2.19)
[2023-11-09 15:42] LABS: Thyroid Stimulating Hormone 0.637 uIU/mL (0.465-4.680)
[2023-11-09 16:00] LABS: Appearance Urine Cloudy (Clear); Color Urine Dark Yellow (Yellow)
[2023-11-09 16:01] LABS: Bilirubin Urine 1+ (Negative); Blood Urine Negative (Negative); Glucose Urine UA Negative (Negative); Ketones Urine 1+ mg/dL (Negative); Leukocyte Esterase Ur Trace LEU/UL (NEGATIVE); Nitrate Urine Negative (Negative); Protein Urine 1+ mg/dL (Negative)
[2023-11-09 16:16] LABS: Bacteria Urine 2+ /hpf; Calcium Oxalate Crystals Urine Present /hpf
[2023-11-09 16:17] LABS: Add Urine Microscopic? YES; RBC Urine None seen /hpf (0-2); Specific Grav Ur 1.041 (1.001-1.035); Squamous Epithelial Cell Urine Rare /hpf (Few); WBC Urine 0-3 /hpf (0-3)
== END 2023-11-09 14:13 | disposition home or self-care (01) ==
LOC: ANHLAB 14:16
PROVIDERS: PCP Internal Medicine; Visit Provider Physician Assistant
DX: R33.9 Retention of urine, unspecified (principal); R42 Dizziness and giddiness; E03.9 Hypothyroidism, unspecified; N18.30 Chronic kidney disease, stage 3 unspecified
CPT/HCPCS: 36415; 80053; 81001; 84439; 84443; 85025; 87086